=== PATIENT | female | born 1935 | race Caucasian/White ===

== ENCOUNTER 2019-01-05 08:33 | Outpatient (CLI) | payer MEDICARE ==
--- NOTE | 2019-01-05 15:07 | NM ---
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 1 hour prior to injection of radiopharmaceutical. 4.6 mCi of I-123 Ioflupane. Three-hour postinjection SPECT of brain in axial plane. FINDINGS: There is uptake in the bilateral caudate nuclei and putamen. However, the uptake in the right caudate is less intense than that of the left. IMPRESSION: No conclusive evidence of Parkinson's disease..
== END 2019-01-05 08:34 | disposition home or self-care (01) ==
LOC: NM 08:33
PROVIDERS: ATTEND Psychiatry & Neurology Neurology
DX: G21.4 Vascular parkinsonism (principal)
CPT/HCPCS: 78607; A9584

== ENCOUNTER 2019-01-27 23:06 | Inpatient (IN) | payer MEDICARE ==
[2019-01-27] MEDS ORDERED: Lorazepam 2 MG/ML VIAL ONE (23:41)
[2019-01-28] MEDS ORDERED: Sodium Chloride 0.9% 1,000 ML IV SCH (00:45)
--- NOTE | 2019-01-28 01:25 | HP ---
CHIEF COMPLAINT: Change in mental status. HOSPITAL COURSE: Patient is an 83-year-old female with a past medical history of prediabetic, hypertension, and Parkinson's, who presents to the hospital with altered mental status. Most of the history is obtained by patient's family who is at the bedside, who states that patient has been more confused for the past one week. Patient currently lives with her daughter, her , and her son-in-law at their home. Patient's family mentioned that for the past one week, she has been having decreased oral intake, however, worse since the past 3 or 4 days. Also, has not been drinking very much fluids either. She at baseline has unsteady gait, however, for the past week, has been more unsteady and has not been able to walk very much for the past 3 or 4 days. Denies any fevers or any dysuria per family that patient has been complaining of any abdominal pain, denies that. PAST MEDICAL HISTORY: She has history of hypertension, prediabetes, macular degeneration, hyperlipidemia, and depression. PAST SURGICAL HISTORY: She has had a back surgery, knee replacements, sara in her lower back, and cholecystectomy. FAMILY HISTORY: Mother had diabetes. Father had lung cancer. REVIEW OF SYSTEMS: Unable to obtain as patient is too drowsy. SOCIAL HISTORY: No history per family of smoking, alcohol use, or recreational drug use. She is a full code. ALLERGIES: SHE HAS NO KNOWN DRUG ALLERGIES. HOWEVER, SHE PREFERS NOT TO USE ASPIRIN AND IBUPROFEN. MEDICATIONS: 1. Atenolol 50 mg daily. 2. Lisinopril 40 mg daily. 3. Doxazosin 4 mg daily. 4. Prozac 40 mg daily. 5. Pravastatin 20 mg daily. 6. Metformin 500 mg daily. 7. Alprazolam 0.25 as needed. 8. Carbidopa levodopa 50/200 four times a day. 9. Pramipexole 0.25 t.i.d. 10. Venlafaxine 150 mg daily. 11. Trazodone 50 mg daily. 12. Rivastigmine 3 mg twice a day. 13. Ranitidine 150 mg twice a day. 14. Zofran every 8 hours as needed. PHYSICAL EXAMINATION: VITAL SIGNS: Temperature 97.4, respirations are 16, oxygenation is 100% on room air, blood pressure 133/91, and pulse of 58. GENERAL: She is sleeping, easily arousable, oriented to self and family members. HEENT: Her mucosa appears to be very, very dry. Her pupils equal and reactive to light. CV: S1 and S2 present. She does have a systolic murmur that radiates to all her right sternal border, left sternal border. LUNGS: Clear to auscultation. No rhonchi or wheezes noted. ABDOMEN: Obese. Bowel sounds are present x2. Mild pain upon palpation to epigastric area and right upper quadrant and right lower quadrant. SKIN: No cuts, lesions, or bruises noted. NEUROVASCULAR: No focal deficits noted. She is able to move all 4 extremities. IMAGING: Patient had a CT of abdomen and pelvis, which indicated obstructive proximal to mid left urethral calculus. 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 There was some wall thickening in the distal antrum of the stomach, hepatic flexure, and colon. LABORATORY DATA: Patient's labs indicated a white count of 12.2, hemoglobin of 13.0, hematocrit of 40.6, and platelets of 298. She had INR that was 1.1. She had a BMP; sodium of 135, potassium of 4.2, BUN of 20, creatinine 0.91, and her calcium was 12. Her urine indicated positive for nitrites. Troponin x1 was negative. Lactic acid was 1.4. ASSESSMENT AND PLAN: Patient is a very pleasant 83-year-old female, presents to the hospital with change in mental status. 1. Acute metabolic encephalopathy. This could be possibly from the urinary tract infection versus new diagnosis of cancer. We will start her on some IV hydration. Also, Urology has been consulted. We will continue to monitor. 2. Urinary tract infection. Patient has an obstructive calculi in her left ureter. We will keep her n.p.o., IV hydration. We will check her intake and output carefully. Urology has been consulted. She will possibly go for surgery in the morning. We will start her on some meropenem given this is an obstructive stone. She is currently clinically stable. Hypercalcemia. This is probably secondary to dehydration. We will continue IV hydration. 1. Dehydration. Again, we will continue IV fluids and continue to monitor this patient. 2. Significant metastatic disease noted, unknown primary. I have consulted Gastroenterology. Again, patient may benefit from either an EGD or a colonoscopy versus a liver biopsy. I am not sure exactly at this time. We will try and upload the scans for further evaluation. 3. Deep venous thrombosis prophylaxis. We will put the patient on SCDs. Job ID: [id number]
[2019-01-28 02:01] VITALS: BMI 27.8
[2019-01-28] MEDS: Dextrose 5 % And 0.9 % NaCl 1,000 ML IV SCH ×2 (02:31→10:20)
[2019-01-28] MEDS: hydrALAZINE 20 MG/ML VIAL SLOW IVP PRN ×2 (02:43→10:20)
[2019-01-28 06:39] LABS: #Eosinphils 0.1 thou/uL (0.0-0.7); #Lymphocytes 1.9 thou/uL (1.20-3.40); #Monocytes 1.3 thou/uL (0.11-0.59); #Neutrophils 7.9 thou/uL (1.40-6.50); %Basophils 0.4 % (0.0-1.0); %Lymphocytes 17.1 % (21.0-51.0); %Monocytes 11.9 % (0.0-10.0); %Neutrophils 69.7 % (42.0-75.0); Hemoglobin 11.6 g/dL (12.0-16.0); Mean Corpuscular HGB CONC 32.1 g/dL (32.0-36.0); Mean Corpuscular Hemoglobin 28.4 pg (27.0-31.0); Mean Corpuscular Volume 88.6 fL (78.0-98.0); Platelet Count 242 thou/uL (130-400); RBC Distribution Width 14.9 % (11.5-14.5); Red Blood Cell (RBC) Count 4.09 mill/uL (4.20-5.40); White Blood Cell (WBC) Count 11.3 thou/uL (4.8-10.8)
[2019-01-28 06:59] LABS: Anion Gap 12 mmol/L (10-20); BUN (Urea Nitrogen) 15 mg/dL (9.8-20.1); Calc. Creatinine Clearance 67 mL/min (70-130); Calcium 10.3 mg/dL (7.8-10.44); Carbon Dioxide 23 mmol/L (23-31); Chloride 105 mmol/L (98-107); Estimated GFR-MDRD 73; Glucose 89 mg/dL (83-110); Potassium 3.5 mmol/L (3.5-5.1); Sodium 136 mmol/L (136-145)
[2019-01-28] MEDS: Pramipexole Di-HCl 0.25 MG TAB PO SCH ×3 (08:09→21:14)
[2019-01-28] MEDS: FLUoxetine HCl 20 MG CAP PO SCH (08:09)
[2019-01-28] MEDS: Famotidine 20 MG TAB PO SCH ×2 (08:09→21:15)
[2019-01-28] MEDS ORDERED: FLU VACC TS2019-20(65YR UP)/PF 180 MCG/0.5 ML SYRINGE IM ONE (09:00)
[2019-01-28] MEDS ORDERED: Prevnar 13-Val Conj/PF 0.5 ML SYRINGE IM ONE (09:00)
[2019-01-28] MEDS ORDERED: Atenolol 50 MG TAB PO SCH (09:00)
[2019-01-28] MEDS ORDERED: ePHEDrine/0.9% NaCl/PF SYRINGE 50 mg/10 ml ONE (10:37)
[2019-01-28] MEDS ORDERED: Dexamethasone 20 MG/5 ML VIAL ONE (10:37)
[2019-01-28] MEDS ORDERED: Lidocaine 1% PF 5 ML VIAL ONE (10:37)
[2019-01-28] MEDS ORDERED: Ondansetron PF 4 MG/2 ML Vial ONE (10:37)
[2019-01-28] MEDS ORDERED: PROPOFOL 200 MG/20 ML VIAL ONE (10:37)
[2019-01-28] MEDS ORDERED: hydrALAZINE 25 MG TAB PO SCH (12:15)
--- NOTE | 2019-01-28 12:21 | CON ---
DATE OF CONSULTATION: 01/28/2019 CONSULTING: [facility]. CONSULTED: Andrade Melchor MD REASON FOR CONSULTATION: Ureteral stone with urinary tract infection. HISTORY OF PRESENT ILLNESS: Ms. Hurtado is an 83-year-old white female, who was admitted to the hospital with history of altered mental status. She became confused, lethargic, and has progressively been getting worse over the past week. The patient's family stated that she is starting to eat less over the past 3 to 4 days and has not been drinking much and has become more unsteady while walking. She has not had any fevers, urinary complaints, or dysuria per the family, but they did note that she has been having some abdominal discomforts and abdominal pain. She was taken to the emergency room in [place] at [facility], where she underwent a CT scan demonstrating multiple liver lesions and what looked like diffuse metastatic disease concerning for possible hepatocellular carcinoma with metastasis, although this has not been fully confirmed. It was also noted that she did have a left ureteral calculus measuring 15 mm with hydronephrosis and urine finding suspicious for urinary tract infection. As such, she was transferred to [facility] here, where she awaits further evaluation and treatment. I have been consulted for management of the urinary tract infection and kidney stone. Most of the history is obtained from the family as the patient is pleasantly confused and is not really answering questions appropriately other than simple yes or no questions. ALLERGIES: NONE, ALTHOUGH SHE DOES HAVE MILD INTOLERANCE TO ASPIRIN AND IBUPROFEN. PAST MEDICAL HISTORY: 1. Hypertension. 2. Prediabetes. 3. Macular degeneration. 4. Hyperlipidemia. 5. Depression. PAST SURGICAL HISTORY: 1. Back surgery. 2. Knee replacement. 3. Lower back surgery. 4. Cholecystectomy done in an open fashion. FAMILY HISTORY: Significant for diabetes and father with lung cancer. She has no family history of nephrolithiasis. SOCIAL HISTORY: The patient does not smoke or use alcohol or any illicit drugs. She is currently full code. REVIEW OF SYSTEMS: A 12-point review of systems was unable to be obtained as the patient is not really answering questions appropriately. Per the family, the review of systems is the same as above with no other additional findings. PHYSICAL EXAMINATION: VITAL SIGNS: Temperature 98, pulse 58, respirations 18, blood pressure 185/80, saturation 98% on room air. GENERAL: No apparent distress. Communicative only with one-word answers. The patient falls asleep sometimes during conversation and is not really answering questions appropriately. She appears stated age. HEENT: Normocephalic and atraumatic. Pupils are symmetric and round. Trachea, midline. Moist mucous membranes. CARDIOVASCULAR: Regular rate and rhythm. Normal S1 and S2. Symmetric pulses. CHEST: No increased work of breathing. Symmetric expansion. LUNGS: Clear anteriorly. ABDOMEN: Soft, nontender, and nondistended. Well-healed large midline incision without hernia. There does appear to be a fluid shift within the belly. GENITOURINARY: Deferred at this time. EXTREMITIES: Trace edema bilaterally. No clubbing or cyanosis. SKIN: Warm and dry. No rashes or lesions. Good turgor. MUSCULOSKELETAL: No obvious joint deformities or joint erythema noted. Full range of motion. NEUROLOGIC: Cranial nerves 2 through 12 grossly intact. No obvious focal, sensory, or motor deficits identified. LYMPHATIC: There is no obvious lymphadenopathy in the supraclavicular, cervical, axillary regions, or inguinal region. PSYCHIATRIC: Slightly somnolent. Oriented x1. The patient has what appears to be a normal mood and affect and is currently pleasant. LABORATORY EVALUATION: The full set of labs are in the [facility], which I have reviewed. Of note, the patient's white count is currently 11.3 with a creatinine of 0.76. Urinalysis from [facility] demonstrates nitrite positive urine with leukocyte esterase, white cells, and red cells. Cultures apparently are pending. CT from [facility] has been reviewed through the [facility], which demonstrates an obstructing proximal-mid left ureteral calculus measuring 15 mm with proximal left hydroureter and mild hydronephrosis. There also appears to be liver metastatic disease with peritoneal carcinomatosis and probable pulmonary metastatic disease, which is nonspecific. It is unclear as the exact etiology in origin of this cancer. ASSESSMENT AND PLAN: An 83-year-old white female with new diagnosis of diffuse metastatic disease of unknown origin with what appears to be carcinomatosis with some ascitic fluid as well as a 15 mm left ureteral calculus with hydronephrosis and evidence of urinary tract infection. She has no SIRS criteria or evidence of sepsis currently, but may progress towards that without decompression of the kidney despite antibiotic therapy. We discussed antibiotic therapy alone versus antibiotic therapy with the ureteral stent with the success rate being much higher and safer with ureteral stent placement. I explained how stent is done along with risks and benefits. Risks which include, but are not limited to bleeding, infection, inability to pass the stent, need for nephrostomy tube, and damage to the ureter. The family understands these risks and states they would like to proceed with ureteral stenting at this time. Afterwards, she would need at least 7 to 10 days of treatment with antimicrobial therapy to clear the complicated urinary tract infection. I would not recommend definitive ureteroscopy at this time until after infection is cleared and until we have a definitive plan in place regarding her metastatic disease. If the family opts for a hospice or palliative care approach, then I would just leave the stent indwelling and plan for no further interventions. If they are going to pursue a more aggressive treatment with chemotherapy or treatments, then I would plan for ureteroscopy prior to initiation with removal of the stone, after which time she can initiate whatever treatment the family desires for treatment of this metastatic disease. I have gone over the procedure with the family now. She is to be kept n.p.o., continue on antibiotic therapy, SCDs, on-call to the OR, and we will plan for ureteral stent today on the left. Job ID: [id number]
[2019-01-28] MEDS ORDERED: cefTRIAXone\\ROCEPHIN 1 GM VIAL ONE (13:42)
[2019-01-28] MEDS ORDERED: Sodium Chloride 0.9% 100 ML ONE (13:42)
[2019-01-28] MEDS ORDERED: Fentanyl 100 MCG/2 ML VIAL ONE (14:17)
--- NOTE | 2019-01-28 14:45 | CON ---
DATE OF CONSULTATION: REASON FOR CONSULTATION: Suspected abdominal malignancy. HISTORY OF PRESENT ILLNESS: Ms. Hurtado is an 83-year-old, who has had Parkinson's and vascular dementia diagnoses for many years. She gets her primary care in [place] with Dr. Schumacher, who has managed her quite well with both of these disorders as well as diabetes, hypertension. In the past couple of months, she has had very poor functional status according to her at the bedside and the daughter. She has been eating less. She has been less mobile, and in the past several days, she has become confused. This has maybe been in the past week and the patient got to where she really was not eating. She is not able to walk or get out of bed for couple of days. The family ultimately brought her to the emergency room in [place]. She had a CAT scan showing multifocal liver lesions, largest being 10 cm in size in the right lower lobe of the liver, multifocal lung lesions and possible some areas of thickening of the colon and stomach. These were concerning for metastatic carcinoma. The patient also was found to have ureteral blockage. She was transferred to this hospital for further evaluation. PAST MEDICAL HISTORY: Hypertension, diabetes, macular degeneration, hyperlipidemia, depression, Parkinson's, and vascular dementia. PAST SURGICAL HISTORY: Back surgery, knee replacement, sara in her back, cholecystectomy. FAMILY HISTORY: Mother had diabetes. Father had lung cancer. REVIEW OF SYSTEMS: Unable to be obtained as the patient is basically not responsive. SOCIAL HISTORY: No history of smoking or alcohol use or drug use. Presently, the patient is a full code. ALLERGIES: NONE KNOWN. MEDICATIONS: At home; 1. Atenolol. 2. Lisinopril. 3. Doxazosin. 4. Prozac. 5. Pravastatin. 6. Metformin. 7. Alprazolam. 8. Carbidopa and levodopa. 9. Pramipexole. 10. Venlafaxine. 11. Trazodone. 12. Rivastigmine. 13. Ranitidine. 14. Zofran . PHYSICAL EXAMINATION: VITAL SIGNS: Temperature 97.7, pulse 67, blood pressure 187/78. GENERAL: The patient does open her eyes, but does not communicate. HEENT: Conjunctivae are clear. Oropharynx with no lesions. NECK: Supple without adenopathy. LUNGS: Clear. HEART: Regular rate and rhythm. ABDOMEN: Notable for massive hepatomegaly. There is no shifting dullness or fluid wave. There is no inguinal masses or lesions. RECTAL: Deferred. EXTREMITIES: No clubbing, cyanosis, or edema. BREASTS: Revealed no overt masses. AXILLA: Revealed no overt masses or nodes. LABORATORY DATA: Here, white count is 11.3, hemoglobin 11.6, platelet count 242. BMP is normal with calcium of 10.3. Outside records notable for UA with positive nitrites, a few bacteria, 20 to 50 white blood cells, moderate leukocytes. Lipase is 17. Glucose 63 on presentation, sodium 135, potassium 4.2, bicarb 22, calcium of 12.0 on initial presentation, bilirubin 1, alkaline phosphatase 477, AST 111, ALT 10, protein 6.5, albumin 3.4. Troponin was normal. Lactic acid 1.4. White count was 12.2, hemoglobin is 13, platelet count was 298. CT scan showed a normal-sized heart, and multiple noncalcified scattered pulmonary nodules, largest measuring 7 to 8 mm with trace pleural fluid. Abdomen, multiple low-attenuation lesions in both lobes of the liver including a large confluent mass in the right lobe, which was 12 to 13 cm in size. There are some cystic lesions in the kidneys, normal appearing pancreas. Left hydroureter with a 1.5 cm calcification in the proximal mid left ureter. There was nonspecific wall thickening in the antrum of stomach. There was questionable focal wall thickening in hepatic flexure. There was mild scattered omental peritoneal nodularity consistent with peritoneal carcinomatosis. Small nonspecific lymph nodes in this area. A small amount of ascites. Uterus was surgically absent. There was questionable focal asymmetric thickening of the rectum. Chest x-ray was negative. CT scan of the head was negative except for the chronic ischemic changes. ASSESSMENT: This is an 83-year-old female, who has had progressive decline in functional status for the past several months, and over the past week, has had a precipitous decline in functional status. She may or may not have a urinary tract infection. She presented with dehydration and calcium of 12. This has responded to IV fluids, but really has not had a change in her mentation. She is going for a ureteral stent today. The main problem here is that she has diffusely metastatic malignancy. With her baseline functional status, even before the last several days, this is going to be something that is probably not treatable as I am not sure that she would be able to get palliative chemotherapy, and I recommended to the family palliative care measures, comfort measures. If they want a diagnosis to be made, liver biopsy can be performed on Wednesday by Radiology for a biopsy for pathologic diagnosis. In the meantime, I would strongly recommend DNR status. If I can be of any further assistance, please do not hesitate to contact me. Job ID: [id number]
[2019-01-28] MEDS ORDERED: Promethazine HCl 25 MG/ML VIAL IM PRN (15:05)
[2019-01-28] MEDS ORDERED: Promethazine HCl 25 MG/ML VIAL SLOW IVP PRN (15:05)
[2019-01-28] MEDS ORDERED: Ondansetron HCl/PF 4 MG/2 ML Vial IVP PRN (15:05)
--- NOTE | 2019-01-28 15:51 | OP ---
DATE OF PROCEDURE: 01/28/2019 SERVICE: Urology. PREOPERATIVE DIAGNOSIS: Left ureteral stone. POSTOPERATIVE DIAGNOSIS: Left ureteral stone. PROCEDURES PERFORMED: Cystoscopy with left ureteral stent placement, 6 x 24 double-J stent. INDICATION FOR PROCEDURE: Ms. Hurtado is an 83-year-old white female, who presented to the hospital with diffuse abdominal pain and altered mental status. She was found to have diffuse metastatic disease along with a left ureteral stone with hydronephrosis. She had evidence of urinary tract infection on UA. Due to the pressing nature of an infection with the stone, we have elected to proceed forward with ureteral stent placement. Risks and benefits were discussed and she has agreed to proceed forward. DESCRIPTION OF PROCEDURE: After identification of armband and verification of consent, the patient was brought back to the operating room, where she underwent general anesthesia with an LMA. She was then placed in dorsal lithotomy position and prepped and draped in usual sterile fashion. After appropriate time-out, a lubricated 22-Portuguese rigid cystoscope was induced per urethra into the bladder. The bladder appeared relatively normal with both ureters in orthotopic location. Attention was turned to the left ureteral orifice, which was cannulated with a 0.035 Sensor wire, which went up to the level of the stone, but could not be manipulated past the stone. Therefore, we switched out for an angled Glidewire, which we able to manipulate past the stone up into the renal pelvis. A 6 x 24 double-J stent was advanced over the Glidewire up to the level of renal pelvis and then, the wire removed leaving a good curl in the kidney and a good curl in the bladder. The bladder was then emptied and cystoscope removed. Rectal exam was performed, which did not demonstrate any lesions or masses within the rectum. The patient was then taken out of positioning, awakened, taken to PACU for recovery in stable condition. COMPLICATIONS: None. ESTIMATED BLOOD LOSS: Minimal. RETAINED TUBE AND DRAINS: A 6 x 24 double-J stent on the left. SPECIMENS: None. FINDINGS: Again is a radiopaque stone in the left ureter. DISPOSITION: The patient will be admitted back to the hospital to complete her metastatic disease workup. Based on this and her ultimate goals for either hospice versus definitive treatment, we will make plans for definitive urologic intervention. Job ID: [id number]
[2019-01-28] MEDS: hydrALAZINE 25 MG TAB PO SCH ×2 (16:17→21:15)
[2019-01-28] MEDS: Acetaminophen 325 MG TAB PO PRN (18:22)
[2019-01-28] MEDS: cefTRIAXone\\ROCEPHIN 1 GM in Sodium Chloride 0.9% 100 ML IVPB SCH (21:12)
[2019-01-28] MEDS: Simvastatin 5 MG TAB PO SCH (21:14)
[2019-01-29] MEDS: hydrALAZINE 20 MG/ML VIAL SLOW IVP PRN (00:52)
[2019-01-29] MEDS: Dextrose 5 % And 0.9 % NaCl 1,000 ML IV SCH ×2 (05:09→15:22)
[2019-01-29] MEDS: FLUoxetine HCl 20 MG CAP PO SCH (08:56)
[2019-01-29] MEDS: Famotidine 20 MG TAB PO SCH ×2 (08:56→21:46)
[2019-01-29] MEDS: Pramipexole Di-HCl 0.25 MG TAB PO SCH ×3 (08:57→21:47)
[2019-01-29] MEDS: hydrALAZINE 25 MG TAB PO SCH ×3 (08:57→21:46)
--- NOTE | 2019-01-29 13:12 | PRG ---
DATE OF SERVICE: 01/29/2019 SUBJECTIVE: Ms. Hurtado is resting in bed. She is moderately demented. She is speaking today which she was not yesterday, but really cannot answer questions. She seems pleasant. Her is at the bedside. OBJECTIVE: VITAL SIGNS: Temperature is 97, pulse 76, blood pressure 142/73. ABDOMEN: Soft and nontender. There is hepatomegaly noted. LABORATORY DATA: No labs were done today. ASSESSMENT: 1. Status post stent for nephrolithiasis yesterday. 2. Diffusely metastatic malignancy throughout the abdomen with carcinomatosis and liver masses and lung masses. The patient's and daughter did discuss what I discussed with them yesterday throughout the day and last night, and they would like to proceed with a biopsy to make a diagnosis, then decide how to proceed. They do understand that likely with her advanced dementia she will not be a candidate even for palliative therapy. They would like to proceed anyway. Palliative Care is going to come by and talk to them later today apparently. PLAN: We will schedule a CT-guided biopsy of liver mass for tomorrow as long as they continue with that plan after talking with palliative care today. Job ID: [id number]
[2019-01-29] MEDS: Acetaminophen 325 MG TAB PO PRN (13:43)
--- NOTE | 2019-01-29 16:12 | PRG ---
DATE OF SERVICE: 01/29/2019 SUBJECTIVE: The patient is seen and examined at the bedside. The patient's daughter is present in the room during my visit. The patient does not have much complaints to offer. She is still quite confused. According to the daughter, her baseline is much less than what we see during my visit. OBJECTIVE: VITAL SIGNS: Blood pressure is 142/73, pulse is 76, temperature is 97.9, respiratory rate is 20, and O2 saturation is 94% on room air. HEENT: Head is atraumatic and normocephalic. Eyes are PERRLA. Sclerae are nonicteric. Oral mucosa is moist. NECK: Supple. LUNGS: Clear. HEART: S1, S2 normal. ABDOMEN: Soft, obese, nontender with possible ascites. EXTREMITIES: No clubbing, cyanosis, or edema. NEUROLOGIC: She follows my commands. She is alert and oriented x1. She moves all 4 extremities. LABORATORY DATA: Glucose is 135 and is ranging from 100 to 170. Echocardiogram is showing LVEF estimated at 60% to 65%, grade 1/3 diastolic dysfunction, mildly dilated left atrium, mild mitral regurgitation, mild aortic regurgitation, and mild tricuspid regurgitation. IMPRESSION: 1. Urinary tract infection. 2. Left ureter stone obstructing status post stenting by Dr. Melchor. 3. Acute metabolic encephalopathy, still present, most likely related to her urinary tract infection. 4. Dehydration. 5. Metastatic disease of her abdominal cavity. The daughter agreed for biopsy of the liver to get diagnosis. PLAN: Plan is to continue her antibiotic, which is ceftriaxone. We are waiting for urine culture. We are going to restart her carbidopa/levodopa along with her Mirapex. Continue her trazodone p.r.n., simvastatin, hydralazine, Prozac, and Pepcid. Job ID: [id number]
[2019-01-29] MEDS: Carbidopa/Levodopa CR 50-200 mg Tablet PO SCH ×2 (16:33→21:47)
--- NOTE | 2019-01-29 16:44 | PRG ---
DATE OF SERVICE: 01/29/2019 SUBJECTIVE: The patient is feeling comfortable. She has no complaints. She is not complaining of any urgency or frequency symptoms. She has not had any pain. The family has not noticed any significant gross hematuria. She is otherwise doing very well. She tolerated her ureteral stent without any issues. Dr. Sosa has seen the patient and had discussed palliative care versus biopsy to establish diagnosis with discussion of options afterwards. It appears at the current time the family would like to pursue a biopsy first before making a final decision versus hospice or palliative care. OBJECTIVE: VITAL SIGNS: Temperature 97.9, pulse 79, respirations 136/74, respirations 20, and saturation 94% on room air. GENERAL: No apparent distress. Communicative. Pleasantly demented. Oriented x1. CARDIOVASCULAR: Regular rate and rhythm. ABDOMEN: Soft, nontender, and nondistended. Positive bowel sounds. : Deferred. EXTREMITIES: No clubbing, cyanosis, or edema. LABORATORY EVALUATION: The full set of labs are in the [facility] system, which I have reviewed. Of note, the patient only had a blood sugar checked today, which appeared to be only slightly elevated. No other new labs otherwise. 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 Family has elected for a biopsy tomorrow, and once pathology results are back, if it is truly diffuse metastatic hepatocellular carcinoma, the patient will probably have limited options per Dr. Sosa' recommendations and would best be served under hospice or palliative care. As such, I would not make any further plans for ureteroscopy, stone removal, or stent removal at this time unless the patient is doing extremely well, which is an unlikely, so long as she is declining and on a hospice track, I would not do anything further and just leave the stent in indefinitely, and the patient will probably in the future with the stent and stone both in place. There is no indication to remove the stent at this time as it is not causing her any problems and will probably minimize her pain, so long as it remains in place. If for some strange reason, she is doing very well past 3 to 6 months out and is expected to live significantly longer than that, then I would give consideration to a stent exchange, although I think this scenario would be very unlikely. I have given the daughter my contact information for the office so that she may call if my services are needed again in the future. Otherwise, I will sign off as there does not appear to be anything further at this time for the urologic interventions. Job ID: [id number]
[2019-01-29] MEDS ORDERED: Pramipexole Di-HCl 0.25 MG TAB PO SCH (21:00)
[2019-01-29] MEDS: Simvastatin 5 MG TAB PO SCH (21:47)
[2019-01-29] MEDS: traZODone HCl 50 MG TAB PO PRN (23:19)
[2019-01-29] MEDS: cefTRIAXone\\ROCEPHIN 1 GM in Sodium Chloride 0.9% 100 ML IVPB SCH (23:20)
[2019-01-30] MEDS: Acetaminophen 325 MG TAB PO PRN (04:11)
[2019-01-30 06:07] LABS: #Eosinphils 0.1 thou/uL (0.0-0.7); #Lymphocytes 1.3 thou/uL (1.20-3.40); #Neutrophils 7.9 thou/uL (1.40-6.50); %Basophils 0.1 % (0.0-1.0); %Eosinophils 1.2 % (0.0-10.0); %Lymphocytes 12.6 % (21.0-51.0); %Monocytes 9.8 % (0.0-10.0); %Neutrophils 76.3 % (42.0-75.0); Hemoglobin 9.3 g/dL (12.0-16.0); Mean Corpuscular HGB CONC 29.6 g/dL (32.0-36.0); Mean Corpuscular Hemoglobin 28.5 pg (27.0-31.0); Mean Corpuscular Volume 96.5 fL (78.0-98.0); Mean Platelet Volume 8.8 fL (7.4-10.4); Platelet Count 201 thou/uL (130-400); Red Blood Cell (RBC) Count 3.26 mill/uL (4.20-5.40); White Blood Cell (WBC) Count 10.3 thou/uL (4.8-10.8)
[2019-01-30 06:09] LABS: INR-International Normal Ratio 1.6; Prothrombin Time 18.6 SEC (12.0-14.7)
[2019-01-30] MEDS: Dextrose 5 % And 0.9 % NaCl 1,000 ML IV SCH ×2 (06:21→12:31)
[2019-01-30] MEDS: hydrALAZINE 25 MG TAB PO SCH ×3 (08:47→20:55)
[2019-01-30] MEDS: Famotidine 20 MG TAB PO SCH ×2 (10:48→20:54)
[2019-01-30] MEDS: Carbidopa/Levodopa CR 50-200 mg Tablet PO SCH ×4 (10:48→20:55)
[2019-01-30] MEDS: Pramipexole Di-HCl 0.25 MG TAB PO SCH ×3 (10:49→20:55)
[2019-01-30] MEDS ORDERED: Fentanyl 100 MCG/2 ML VIAL ONE (11:17)
[2019-01-30] MEDS ORDERED: Midazolam HCl 2 mg/2 ml Vial ONE (11:39)
[2019-01-30] MEDS: FLUoxetine HCl 20 MG CAP PO SCH (12:32)
--- NOTE | 2019-01-30 14:31 | CT ---
CT-guided biopsy liver mass HISTORY: Multiple liver masses. FINDINGS: After explaining the procedure and obtaining informed consent, limited CT imaging of the ab domen was performed. Multiple heterogeneous low density masses are seen throughout each liver lobe. Safest approach is to the left lobe. Sterile technique, buffered local anesthesia, CT guidance, and an anterior subxiphoid approach were u sed to carefully advance a 17-gauge trocar needle into the large hypoechoic mass within the left liver lobe. Position was confirmed with CT imaging. A total of 2 18-gauge core biopsy specimens were obtained and submitted to Dr. Zimmerman from pathology f or evaluation. Specimen adequacy was confirmed. Needle was removed. CT images show no evidence of complication. Patient tolerated the procedure well and was returned in unchanged condition. IMPRESSION: Technically successful CT-guided liver mass biopsy. Pathology is pending.
--- NOTE | 2019-01-30 14:51 | PDOC.HOSPP ---
- Subjective Encounter Date: 01/30/19 Encounter Time: 14:48 Subjective: pleasantly confused - Objective Vital Signs & Weight: Vital Signs (12 hours) Temp Pulse Resp BP BP Pulse Ox 01/30/19 12:29 97 F L 86 16 139/83 93 L 01/30/19 08:47 88 156/86 H 01/30/19 08:00 95 01/30/19 07:29 97.6 F 88 20 146/83 H 94 L 01/30/19 06:08 97.8 F 86 14 143/75 H 92 L Weight Admit Weight 167 lb Weight 167 lb 11.2 oz I&O: 01/29/19 01/30/19 01/31/19 06:59 06:59 06:59 Intake Total 1200 990 Balance 1200 990 Result Diagrams: 01/30/19 05:39 01/28/19 05:50 Additional Labs: Accuchecks 01/30/19 01/30/19 01/29/19 12:53 04:45 20:22 POC Glucose 98 90 110 01/29/19 16:35 POC Glucose 114 H Hospitalist ROS - Medication Medications: Active Medications Generic Name Dose Route Start Last Admin Trade Name Freq PRN Reason Stop Dose Admin Acetaminophen 650 mg 01/27/19 23:47 01/30/19 04:11 Tylenol PO 650 mg Q4H PRN Administration Headache/Fever/Mild Pain (1-3) Carbidopa/Levodopa 1 tab 01/29/19 17:00 01/30/19 12:32 Sinemet Cr 50/200 PO 1 tab QID FRANCOISE Administration Famotidine 20 mg 01/28/19 09:00 01/30/19 10:48 Pepcid PO Not Given BID FRANCOISE Fluoxetine HCl 40 mg 01/28/19 09:00 01/30/19 12:32 Prozac PO 40 mg DAILY FRANCOISE Administration Hydralazine HCl 5 mg 01/28/19 02:08 01/29/19 00:52 Apresoline SLOW IVP 5 mg Q6H PRN Administration Blood Pressure Hydralazine HCl 25 mg 01/28/19 15:00 01/30/19 08:47 Apresoline PO 25 mg TID FRANCOISE Administration Dextrose/Sodium Chloride 1,000 mls @ 75 mls/hr 01/27/19 23:45 01/30/19 12:31 D5 0.9% Ns IV 1,000 mls .[id number] FRANCOISE Administration Ceftriaxone Sodium 1 gm/ 100 mls @ 200 mls/hr 01/28/19 22:00 01/29/19 23:20 Sodium Chloride IVPB 100 mls Q24HR FRANCOISE Administration Pramipexole Dihydrochloride 0.25 mg 01/28/19 09:00 01/30/19 10:49 Mirapex PO Not Given TID FRANCOISE Simvastatin 10 mg 01/28/19 21:00 01/29/19 21:47 Zocor PO 10 mg HS FRANCOISE Administration Trazodone HCl 50 mg 01/28/19 00:35 01/29/19 23:19 Desyrel PO 50 mg HS PRN Administration Insomnia - Exam Neck: no JVD Heart: RRR, no murmur Respiratory: CTAB Gastrointestinal: soft, non-tender, no palpable masses Extremities: 1+ LE edema Hosp A/P (1) Encephalopathy, metabolic Code(s): G93.41 - METABOLIC ENCEPHALOPATHY Status: Acute (2) UTI (urinary tract infection) Status: Acute Qualifiers: Urinary tract infection type: acute cystitis Hematuria presence: without hematuria Qualified Code(s): N30.00 - Acute cystitis without hematuria (3) Secondary malignant neoplasm of unspecified site Code(s): C79.9 - SECONDARY MALIGNANT NEOPLASM OF UNSPECIFIED SITE; C80.1 - MALIGNANT (PRIMARY) NEOPLASM, UNSPECIFIED Status: Acute (4) Obstructive uropathy Code(s): N13.9 - OBSTRUCTIVE AND REFLUX UROPATHY, UNSPECIFIED Status: Acute (5) DM type 2 (diabetes mellitus, type 2) Status: Chronic Qualifiers: Diabetes mellitus terminal supervisor insulin use: without intermediate use Diabetes mellitus complication status: without complication Qualified Code(s): E11.9 - Type 2 diabetes mellitus without complications (6) HTN (hypertension) Code(s): I10 - ESSENTIAL (PRIMARY) HYPERTENSION Status: Acute Qualifiers: Hypertension type: essential hypertension Qualified Code(s): I10 - Essential (primary) hypertension (7) Parkinson disease Code(s): G20 - PARKINSON'S DISEASE Status: Acute - Plan liver Bx pending cont iv antibx selected home meds accu/ss
--- NOTE | 2019-01-30 16:54 | PDOC.EVN ---
Event Note - Event Note Event Note: family requests DNAR status. complied after consultation
[2019-01-30] MEDS: ALPRAZolam 0.25 MG TAB PO PRN (17:55)
[2019-01-30] MEDS: Simvastatin 5 MG TAB PO SCH (20:55)
[2019-01-30] MEDS: traZODone HCl 50 MG TAB PO PRN (22:02)
[2019-01-30] MEDS: cefTRIAXone\\ROCEPHIN 1 GM in Sodium Chloride 0.9% 100 ML IVPB SCH (22:08)
[2019-01-31] MEDS: Dextrose 5 % And 0.9 % NaCl 1,000 ML IV SCH ×2 (02:16→20:53)
[2019-01-31] MEDS: hydrALAZINE 25 MG TAB PO SCH ×3 (08:37→20:21)
[2019-01-31] MEDS: Carbidopa/Levodopa CR 50-200 mg Tablet PO SCH ×4 (08:37→20:20)
[2019-01-31] MEDS: Pramipexole Di-HCl 0.25 MG TAB PO SCH ×3 (08:38→20:20)
[2019-01-31] MEDS: Famotidine 20 MG TAB PO SCH ×2 (08:38→20:21)
[2019-01-31] MEDS: FLUoxetine HCl 20 MG CAP PO SCH (08:38)
--- NOTE | 2019-01-31 08:45 | PDOC.HOSPP ---
- Subjective Encounter Date: 01/31/19 Encounter Time: 08:43 Subjective: pleasantly confused - Objective Vital Signs & Weight: Vital Signs (12 hours) Temp Pulse Resp BP BP BP Pulse Ox 01/31/19 07:00 97.4 F L 93 18 163/85 H 93 L 01/31/19 04:00 98.1 F 77 20 117/69 94 L 01/30/19 20:55 97.6 F 88 22 H 160/82 H 94 L Weight Admit Weight 167 lb Weight 167 lb 11.2 oz I&O: 01/30/19 01/31/19 02/01/19 06:59 06:59 06:59 Intake Total 990 605 Balance 990 605 Result Diagrams: 01/30/19 05:39 01/28/19 05:50 Additional Labs: Accuchecks 01/31/19 01/30/19 01/30/19 04:54 20:55 16:45 POC Glucose 93 99 112 H 01/30/19 12:53 POC Glucose 98 Hospitalist ROS - Medication Medications: Active Medications Generic Name Dose Route Start Last Admin Trade Name Freq PRN Reason Stop Dose Admin Acetaminophen 650 mg 01/27/19 23:47 01/30/19 04:11 Tylenol PO 650 mg Q4H PRN Administration Headache/Fever/Mild Pain (1-3) Alprazolam 0.25 mg 01/28/19 00:34 01/30/19 17:55 Xanax PO 0.25 mg Q24H PRN Administration Anxiety Carbidopa/Levodopa 1 tab 01/29/19 17:00 01/30/19 20:55 Sinemet Cr 50/200 PO 1 tab QID FRANCOISE Administration Famotidine 20 mg 01/28/19 09:00 01/30/19 20:54 Pepcid PO 20 mg BID FRANCOISE Administration Fluoxetine HCl 40 mg 01/28/19 09:00 01/30/19 12:32 Prozac PO 40 mg DAILY FRANCOISE Administration Hydralazine HCl 5 mg 01/28/19 02:08 01/29/19 00:52 Apresoline SLOW IVP 5 mg Q6H PRN Administration Blood Pressure Hydralazine HCl 25 mg 01/28/19 15:00 01/30/19 20:55 Apresoline PO 25 mg TID FRANCOISE Administration Dextrose/Sodium Chloride 1,000 mls @ 75 mls/hr 01/27/19 23:45 01/31/19 02:16 D5 0.9% Ns IV 1,000 mls .[id number] FRANCOISE Administration Ceftriaxone Sodium 1 gm/ 100 mls @ 200 mls/hr 01/28/19 22:00 01/30/19 22:08 Sodium Chloride IVPB 100 mls Q24HR FRANCOISE Administration Pramipexole Dihydrochloride 0.25 mg 01/28/19 09:00 01/30/19 20:55 Mirapex PO 0.25 mg TID FRANCOISE Administration Simvastatin 10 mg 01/28/19 21:00 01/30/19 20:55 Zocor PO 10 mg HS FRANCOISE Administration Trazodone HCl 50 mg 01/28/19 00:35 01/30/19 22:02 Desyrel PO 50 mg HS PRN Administration Insomnia - Exam Neck: no JVD Heart: RRR, no murmur Respiratory: CTAB Gastrointestinal: soft, normal bowel sounds Extremities: no edema Hosp A/P (1) Encephalopathy, metabolic Code(s): G93.41 - METABOLIC ENCEPHALOPATHY Status: Acute (2) UTI (urinary tract infection) Status: Acute Qualifiers: Urinary tract infection type: acute cystitis Hematuria presence: without hematuria Qualified Code(s): N30.00 - Acute cystitis without hematuria (3) Secondary malignant neoplasm of unspecified site Code(s): C79.9 - SECONDARY MALIGNANT NEOPLASM OF UNSPECIFIED SITE; C80.1 - MALIGNANT (PRIMARY) NEOPLASM, UNSPECIFIED Status: Acute (4) Obstructive uropathy Code(s): N13.9 - OBSTRUCTIVE AND REFLUX UROPATHY, UNSPECIFIED Status: Acute (5) DM type 2 (diabetes mellitus, type 2) Status: Chronic Qualifiers: Diabetes mellitus skilled nursing insulin use: without supervisor long goods use Diabetes mellitus complication status: without complication Qualified Code(s): E11.9 - Type 2 diabetes mellitus without complications (6) HTN (hypertension) Code(s): I10 - ESSENTIAL (PRIMARY) HYPERTENSION Status: Acute Qualifiers: Hypertension type: essential hypertension Qualified Code(s): I10 - Essential (primary) hypertension (7) Parkinson disease Code(s): G20 - PARKINSON'S DISEASE Status: Acute - Plan liver Bx pending cont iv antibx selected home meds accu/ss
--- NOTE | 2019-01-31 15:49 | PDOC.PALCO ---
Palliative Care Consult - Consult Details Requesting Physician: Dr Mauricio Reason for Consult: goals of care, family support, complex decision-making Family Members Present: , daughter and son-in-law - Pertinent HPI 83 year old female with an increase in confusion a week prior to presentation to the emergency room. Also decrease in intake, and poor mobility. Admitted for metabolic encephalopathy, uncertain if related to uti or new diagnosis of cancer. - Pertinent PMH hypertension, prediabetes, macular degeneration, hyperlipidemia, depression - Social History Smoking Status: Never smoker Smoking: no tobacco exposure Alcohol Use: none Drug Use History: none Living Situation: with family/parents - Medications MAR Reviewed: Yes - Allergies Allergies/Adverse Reactions: Allergies Allergy/AdvReac Type Severity Reaction Status Date / Time codeine Allergy Verified 01/28/19 02:30 - Subjective Pleasantly confused, unable to accurately perform ROS secondary to encephalopathy. - ROS Non Response: due to mental status - Objective Vital Signs: Vital Signs - Most Recent Temp Pulse Resp BP Pulse Ox 97.4 F L 93 18 163/85 H 93 L 01/31/19 07:00 01/31/19 14:59 01/31/19 07:00 01/31/19 14:59 01/31/19 08:00 Palliative Performance Scale: 30 - Advance Directives Medical Power of Salt Maker: - Physical Exam Constitutional: NAD, confusion HEENT: EOMI, moist MMs, sclera anicteric Respiratory: clear to auscultation bilateral, unlabored breathing Cardiovascular: RRR Gastrointestinal: soft Musculoskeletal: pulses present Neurology: moves all 4 limbs Skin: cap refill <2 seconds, normal turgor, bruising Deviation from normal: confused - Problem List (1) Palliative care encounter Code(s): Z51.5 - ENCOUNTER FOR PALLIATIVE CARE Current Visit: Yes Status: Acute (2) Physical deconditioning Code(s): R53.81 - OTHER MALAISE Current Visit: Yes Status: Acute (3) Encephalopathy, metabolic Code(s): G93.41 - METABOLIC ENCEPHALOPATHY Current Visit: Yes Status: Acute (4) Secondary malignant neoplasm of unspecified site Code(s): C79.9 - SECONDARY MALIGNANT NEOPLASM OF UNSPECIFIED SITE; C80.1 - MALIGNANT (PRIMARY) NEOPLASM, UNSPECIFIED Current Visit: Yes Status: Acute - Plan/Recommendations Plan: Lengthy conversation with and family in relation to goals of care for Mrs Morgan. Family states recent increase in assistance required for [facility]'s. Patient has become a two person assist for transfers. Confusion increased such that it is also difficult to redirect patient with basic ADL's. *Family asked for information related to hospice *Famiy concerned that it will not be safe to discharge patient home secondary to increase in confusion and assistance required for ADL *Discussed that Medicare will not pay for dual services such as Hospice and [facility] *Awaiting consult from Oncology prior to decisions. CM consult placed and verbally shared information with [facility]. Palliative Care to continue to support family and patient [75] minutes spent on this encounter with >50% of the time in counseling and coordination of care. Thank you for this very appropriate consult.
[2019-01-31] MEDS: Acetaminophen 325 MG TAB PO PRN (17:47)
[2019-01-31] MEDS: Simvastatin 5 MG TAB PO SCH (20:20)
[2019-01-31] MEDS: cefTRIAXone\\ROCEPHIN 1 GM in Sodium Chloride 0.9% 100 ML IVPB SCH (20:53)
[2019-02-01] MEDS: FLUoxetine HCl 20 MG CAP PO SCH (08:15)
[2019-02-01] MEDS: Acetaminophen 325 MG TAB PO PRN (08:15)
[2019-02-01] MEDS: Pramipexole Di-HCl 0.25 MG TAB PO SCH ×3 (08:15→20:29)
[2019-02-01] MEDS: hydrALAZINE 25 MG TAB PO SCH ×3 (08:15→20:28)
[2019-02-01] MEDS: Carbidopa/Levodopa CR 50-200 mg Tablet PO SCH ×4 (12:10→20:28)
--- NOTE | 2019-02-01 14:05 | PDOC.HOSPP ---
- Subjective Encounter Date: 02/01/19 Encounter Time: 14:02 Subjective: pleasntly confused - Objective Vital Signs & Weight: Weight Admit Weight 167 lb Weight 167 lb 11.2 oz I&O: 01/31/19 02/01/19 02/02/19 06:59 06:59 06:59 Intake Total 605 Balance 605 Result Diagrams: 01/30/19 05:39 01/28/19 05:50 Additional Labs: Accuchecks 02/01/19 01/31/19 01/31/19 04:29 19:49 15:22 POC Glucose 81 79 90 Hospitalist ROS - Medication Medications: Active Medications Generic Name Dose Route Start Last Admin Trade Name Freq PRN Reason Stop Dose Admin Acetaminophen 650 mg 01/27/19 23:47 01/31/19 17:47 Tylenol PO 650 mg Q4H PRN Administration Headache/Fever/Mild Pain (1-3) Alprazolam 0.25 mg 01/28/19 00:34 01/30/19 17:55 Xanax PO 0.25 mg Q24H PRN Administration Anxiety Carbidopa/Levodopa 1 tab 01/29/19 17:00 01/31/19 20:20 Sinemet Cr 50/200 PO 1 tab QID FRANCOISE Administration Famotidine 20 mg 01/28/19 09:00 01/31/19 20:21 Pepcid PO 20 mg BID FRANCOISE Administration Fluoxetine HCl 40 mg 01/28/19 09:00 01/31/19 08:38 Prozac PO 40 mg DAILY FRANCOISE Administration Hydralazine HCl 5 mg 01/28/19 02:08 01/29/19 00:52 Apresoline SLOW IVP 5 mg Q6H PRN Administration Blood Pressure Hydralazine HCl 25 mg 01/28/19 15:00 01/31/19 20:21 Apresoline PO 25 mg TID FRANCOISE Administration Dextrose/Sodium Chloride 1,000 mls @ 75 mls/hr 01/27/19 23:45 01/31/19 20:53 D5 0.9% Ns IV Not Given .[id number] FRANCOISE Ceftriaxone Sodium 1 gm/ 100 mls @ 200 mls/hr 01/28/19 22:00 01/31/19 20:53 Sodium Chloride IVPB Not Given Q24HR FRANCOISE Pramipexole Dihydrochloride 0.25 mg 01/28/19 09:00 01/31/19 20:20 Mirapex PO 0.25 mg TID FRANCOISE Administration Simvastatin 10 mg 01/28/19 21:00 01/31/19 20:20 Zocor PO 10 mg HS FRANCOISE Administration Trazodone HCl 50 mg 01/28/19 00:35 01/30/19 22:02 Desyrel PO 50 mg HS PRN Administration Insomnia - Exam General Appearance: awake alert Neck: no JVD Heart: RRR, no murmur Respiratory: CTAB Gastrointestinal: soft, normal bowel sounds Extremities: 1+ LE edema Hosp A/P (1) Encephalopathy, metabolic Code(s): G93.41 - METABOLIC ENCEPHALOPATHY Status: Acute (2) UTI (urinary tract infection) Status: Acute Qualifiers: Urinary tract infection type: acute cystitis Hematuria presence: without hematuria Qualified Code(s): N30.00 - Acute cystitis without hematuria (3) Secondary malignant neoplasm of unspecified site Code(s): C79.9 - SECONDARY MALIGNANT NEOPLASM OF UNSPECIFIED SITE; C80.1 - MALIGNANT (PRIMARY) NEOPLASM, UNSPECIFIED Status: Acute (4) Obstructive uropathy Code(s): N13.9 - OBSTRUCTIVE AND REFLUX UROPATHY, UNSPECIFIED Status: Acute (5) DM type 2 (diabetes mellitus, type 2) Status: Chronic Qualifiers: Diabetes mellitus senior living insulin use: without meterman use Diabetes mellitus complication status: without complication Qualified Code(s): E11.9 - Type 2 diabetes mellitus without complications (6) HTN (hypertension) Code(s): I10 - ESSENTIAL (PRIMARY) HYPERTENSION Status: Acute Qualifiers: Hypertension type: essential hypertension Qualified Code(s): I10 - Essential (primary) hypertension (7) Parkinson disease Code(s): G20 - PARKINSON'S DISEASE Status: Acute - Plan liver Bx -poorly differentiated adenoca related to family cont iv antibx selected home meds accu/ss
[2019-02-01 15:56] LABS: Calcium 9.9 mg/dL (7.8-10.44); Chloride 111 mmol/L (98-107); Potassium 4.3 mmol/L (3.5-5.1); Sodium 137 mmol/L (136-145)
[2019-02-01 16:06] LABS: ALT (SGPT) 17 U/L (8-55); AST (SGOT) 136 U/L (5-34); Albumin 2.8 g/dL (3.4-4.8); Alkaline Phosphatase 578 U/L (40-110); Anion Gap 17 mmol/L (10-20); BUN (Urea Nitrogen) 16 mg/dL (9.8-20.1); Calc. Creatinine Clearance 62 mL/min (70-130); Carbon Dioxide 14 mmol/L (23-31); Estimated GFR-MDRD 67; Glucose 100 mg/dL (83-110); Protein, Total 5.8 g/dL (6.0-8.3)
[2019-02-01] MEDS: Famotidine 20 MG TAB PO SCH ×2 (16:40→20:29)
[2019-02-01] MEDS: Dextrose 5 % And 0.9 % NaCl 1,000 ML IV SCH ×2 (16:42→22:52)
[2019-02-01] MEDS: Simvastatin 5 MG TAB PO SCH (20:29)
[2019-02-01] MEDS: cefTRIAXone\\ROCEPHIN 1 GM in Sodium Chloride 0.9% 100 ML IVPB SCH (22:52)
[2019-02-02 06:27] LABS: Albumin 2.6 g/dL (3.4-4.8); Anion Gap 12 mmol/L (10-20); BUN (Urea Nitrogen) 15 mg/dL (9.8-20.1); BUN/Creatinine Ratio 19.74; Calc. Creatinine Clearance 67 mL/min (70-130); Calcium 9.9 mg/dL (7.8-10.44); Carbon Dioxide 22 mmol/L (23-31); Chloride 108 mmol/L (98-107); Estimated GFR-MDRD 73; Glucose 84 mg/dL (83-110); Phosphorus 2.1 mg/dL (2.3-4.7); Potassium 3.5 mmol/L (3.5-5.1); Sodium 138 mmol/L (136-145)
[2019-02-02] MEDS: hydrALAZINE 25 MG TAB PO SCH ×3 (08:41→20:19)
[2019-02-02] MEDS: Famotidine 20 MG TAB PO SCH ×2 (08:41→20:19)
[2019-02-02] MEDS: Pramipexole Di-HCl 0.25 MG TAB PO SCH ×3 (08:41→20:20)
[2019-02-02] MEDS: FLUoxetine HCl 20 MG CAP PO SCH (08:41)
[2019-02-02] MEDS: Carbidopa/Levodopa CR 50-200 mg Tablet PO SCH ×4 (08:42→20:19)
[2019-02-02] MEDS: Dextrose 5 % And 0.9 % NaCl 1,000 ML IV SCH (08:42)
[2019-02-02] MEDS: Acetaminophen 325 MG TAB PO PRN (08:48)
[2019-02-02] MEDS: Senokot S 8.6-50 MG TAB PO PRN (13:14)
[2019-02-02] MEDS ORDERED: Cepastat Lozenges 1 LOZ PO PRN (13:46)
[2019-02-02] MEDS ORDERED: Artificial Tears 18 DROP/0.9 ML EA EYE PRN (13:46)
[2019-02-02] MEDS ORDERED: Sodium Chloride 0.65% Nasal 44 ML BOT EA NARE PRN (13:46)
[2019-02-02] MEDS ORDERED: Diabetic Tussin 200 MG/10 ML UDCUP PO PRN (13:46)
[2019-02-02] MEDS ORDERED: Ondansetron PF 4 MG/2 ML Vial IVP PRN (13:46)
[2019-02-02] MEDS ORDERED: Loratadine 10 MG TAB PO PRN (13:46)
[2019-02-02] MEDS ORDERED: Calcium Carbonate 500 MG ChewTAB PO PRN (13:46)
--- NOTE | 2019-02-02 13:48 | PDOC.HOSPP ---
- Subjective Encounter Date: 02/02/19 Encounter Time: 09:00 Subjective: Patient seen and examined. No new complaints. No overnight events - Objective Vital Signs & Weight: Vital Signs (12 hours) Temp Pulse Resp BP BP Pulse Ox 02/02/19 08:41 92 161/85 H 02/02/19 08:00 98.4 F 92 16 161/85 H 94 L Weight Admit Weight 167 lb Weight 167 lb 11.2 oz Result Diagrams: 01/30/19 05:39 02/02/19 05:38 Additional Labs: Accuchecks 02/02/19 02/02/19 02/01/19 11:29 04:32 19:32 POC Glucose 108 78 81 02/01/19 16:25 POC Glucose 115 H Hospitalist ROS - Review of Systems Constitutional: denies: fever, chills, sweats, weakness, malaise, other ENT: denies: ear pain, ear discharge, nose pain, nose discharge, nose congestion , mouth pain, mouth swelling, throat pain, throat swelling, other Respiratory: denies: cough, dry, shortness of breath, hemoptysis, SOB with excertion, pleuritic pain, sputum, wheezing, other Cardiovascular: denies: chest pain, palpitations, orthopnea, paroxysmal noc. dyspnea, edema, light headedness, other Gastrointestinal: denies: nausea, vomiting, abdominal pain, diarrhea, constipation, melena, hematochezia, other Genitourinary: denies: dysuria, frequency, incontinence, hematuria, retention, other Musculoskeletal: reports: back pain. denies: neck pain, shoulder pain, arm pain , hand pain, leg pain, foot pain, other - Medication Medications: Active Medications Generic Name Dose Route Start Last Admin Trade Name Freq PRN Reason Stop Dose Admin Acetaminophen 650 mg 01/27/19 23:47 02/02/19 08:48 Tylenol PO 650 mg Q4H PRN Administration Headache/Fever/Mild Pain (1-3) Alprazolam 0.25 mg 01/28/19 00:34 01/30/19 17:55 Xanax PO 0.25 mg Q24H PRN Administration Anxiety Carbidopa/Levodopa 1 tab 01/29/19 17:00 02/02/19 13:14 Sinemet Cr 50/200 PO 1 tab QID FRANCOISE Administration Famotidine 20 mg 01/28/19 09:00 02/02/19 08:41 Pepcid PO 20 mg BID FRANCOISE Administration Fluoxetine HCl 40 mg 01/28/19 09:00 02/02/19 08:41 Prozac PO 40 mg DAILY FRANCOISE Administration Hydralazine HCl 5 mg 01/28/19 02:08 01/29/19 00:52 Apresoline SLOW IVP 5 mg Q6H PRN Administration Blood Pressure Hydralazine HCl 25 mg 01/28/19 15:00 02/02/19 08:41 Apresoline PO 25 mg TID FRANCOISE Administration Dextrose/Sodium Chloride 1,000 mls @ 75 mls/hr 01/27/19 23:45 02/02/19 08:42 D5 0.9% Ns IV Not Given .[id number] FRANCOISE Ceftriaxone Sodium 1 gm/ 100 mls @ 200 mls/hr 01/28/19 22:00 02/01/19 22:52 Sodium Chloride IVPB Not Given Q24HR [facility] Pramipexole Dihydrochloride 0.25 mg 01/28/19 09:00 02/02/19 08:41 Mirapex PO 0.25 mg TID FRANCOISE Administration Senna/Docusate Sodium 2 tab 01/27/19 23:47 02/02/19 13:14 Senokot S PO 2 tab BIDPRN PRN Administration Constipation Simvastatin 10 mg 01/28/19 21:00 02/01/19 20:29 Zocor PO 10 mg HS FRANCOISE Administration Trazodone HCl 50 mg 01/28/19 00:35 01/30/19 22:02 Desyrel PO 50 mg HS PRN Administration Insomnia - Exam General Appearance: NAD, awake alert Eye: PERRL, anicteric sclera ENT: normocephalic atraumatic, no oropharyngeal lesions Neck: supple, symmetric, no JVD Heart: RRR, no murmur, no gallops Respiratory: CTAB, no wheezes, no rales Gastrointestinal: soft, non-tender, non-distended, normal bowel sounds Extremities: no cyanosis, no clubbing Skin: normal turgor, no lesions Neurological: no focal deficits Musculoskeletal: normal tone, normal strength Psychiatric: normal affect, normal behavior Hosp A/P (1) Encephalopathy, metabolic Code(s): G93.41 - METABOLIC ENCEPHALOPATHY Status: Acute (2) HTN (hypertension) Code(s): I10 - ESSENTIAL (PRIMARY) HYPERTENSION Status: Acute Qualifiers: Hypertension type: essential hypertension Qualified Code(s): I10 - Essential (primary) hypertension (3) Obstructive uropathy Code(s): N13.9 - OBSTRUCTIVE AND REFLUX UROPATHY, UNSPECIFIED Status: Acute (4) Parkinson disease Code(s): G20 - PARKINSON'S DISEASE Status: Acute (5) Physical deconditioning Code(s): R53.81 - OTHER MALAISE Status: Acute (6) Secondary malignant neoplasm of unspecified site Code(s): C79.9 - SECONDARY MALIGNANT NEOPLASM OF UNSPECIFIED SITE; C80.1 - MALIGNANT (PRIMARY) NEOPLASM, UNSPECIFIED Status: Acute (7) UTI (urinary tract infection) Status: Acute Qualifiers: Urinary tract infection type: acute cystitis Hematuria presence: without hematuria Qualified Code(s): N30.00 - Acute cystitis without hematuria (8) DM type 2 (diabetes mellitus, type 2) Status: Chronic Qualifiers: Diabetes mellitus tank terminal gauger insulin use: without alf use Diabetes mellitus complication status: without complication Qualified Code(s): E11.9 - Type 2 diabetes mellitus without complications - Plan old records reviewed/req, continue antibiotics 02/02/19 oncology has been consulted and opinion pending discharge planning medication reviewed supportive care prognosis guarded continue hien
--- NOTE | 2019-02-02 14:41 | CON ---
DATE OF CONSULTATION: REASON FOR CONSULTATION: Metastatic adenocarcinoma. HISTORY OF PRESENT ILLNESS: Ms. Hurtado is a pleasant 83-year-old female with history of dementia, Parkinson disease, who over the past week or so has had worsening altered mental status, poor appetite, and weakness. She was brought to the emergency room in [place]. A CT scan performed of her abdomen and pelvis showed obstructing proximal left ureteral calculus. There were liver lesions, the largest being 10 cm. She had peritoneal carcinomatosis. There were nodules in the lung consistent with metastatic disease. She had wall thickening in the distal antrum of the stomach, hepatic flexure of the colon and the rectum consistent with likely a GI primary. She also had a urinary tract infection and was started on antibiotics. She was transferred to this facility for further treatment. She had a cystoscopy with a left ureteral stent placement. GI saw the patient as well as Palliative Care. The patient did undergo a liver biopsy. 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 Differential diagnosis included upper GI and pancreatobiliary cancer. We were asked to see the patient regarding treatment options. The patient was seen at bedside. She is oriented to person and the hospital. She denies any complaints other than mild headache. PAST MEDICAL HISTORY: 1. Hypertension. 2. Diabetes. 3. Macular degeneration. 4. Hyperlipidemia. 5. Parkinson's. 6. Depression. PAST SURGICAL HISTORY: 1. Back surgery. 2. Knee replacements. 3. There is a sara in her low back. 4. Cholecystectomy. FAMILY HISTORY: Father had lung cancer. SOCIAL HISTORY: She is , has 4 children. Lives with her . No alcohol, tobacco, or illicit drug use. ALLERGIES: NO KNOWN DRUG ALLERGIES. HOME MEDICATIONS: 1. Xanax. 2. Atenolol. 3. Carbidopa. 4. B12. 5. Cardura. 6. Prozac. 7. Lisinopril. 8. Glucophage. 9. MVI. 10. Mirapex. 11. Pravastatin. 12. Ranitidine. 13. Rivastigmine. 14. Trazodone. 15. Venlafaxine. REVIEW OF SYSTEMS: Unable to obtain secondary to mental status, although she denies any complaints. PHYSICAL EXAMINATION: VITAL SIGNS: Temperature is 98.4, pulse is 92, respiratory rate is 16, blood pressure is 161/85, and she is 94% on room air. GENERAL: This is a well-developed, well-nourished female, in no acute distress. HEENT: Normocephalic, atraumatic. Pupils are equal and reactive to light. NECK: Supple. CARDIOVASCULAR: Regular rate and rhythm. LUNGS: Clear. ABDOMEN: Soft. She does have hepatomegaly. EXTREMITIES: No clubbing or cyanosis. SKIN: No rash. HEMATOLOGICAL: No petechiae or purpura. PERTINENT LABS AND X-RAYS: Current WBC is 10.3, hemoglobin 9.3, hematocrit 31.5, platelet count is 201,000, she has 76% neutrophils, 12% lymphocytes. PT is 18.6, INR is 1.6. Sodium is 138, potassium 3.5, chloride 108, CO2 is 22, BUN is 15, creatinine is 0.76, calcium is 9.9, phosphorus is 2.1, bilirubin is 1.0, AST is 136, ALT is 17, alkaline phosphatase is 578. Serum total protein is 5.8, albumin 2.6, and globulin 3. Radiology per HPI. ASSESSMENT: Metastatic adenocarcinoma with liver lesions, peritoneal carcinomatosis, and thickening of multiple layers in the gastrointestinal tract. DISCUSSION: I met with and children to discuss treatment options. We discussed that her primary is likely GI. She would, however, need further workup including endoscopy. We discussed that all chemotherapy is palliative as she does have stage IV disease. We briefly discussed the possible side effects of chemotherapy. I would agree that the patient is best served given her dementia and poor performance status with comfort care only. The patient is a DNR. Family would like the patient to go to a swing bed, then a possible long-term with hospice. marina dry dock manager will be involved. Case has been discussed with Dr. Millan. Thank you for the consult. Job ID: [id number]
[2019-02-02] MEDS: Rivastigmine 1.5 MG CAP PO SCH (17:42)
[2019-02-02] MEDS: Doxazosin 2 MG TAB PO SCH (20:19)
[2019-02-02] MEDS: Lisinopril 20 MG TAB PO SCH (20:19)
[2019-02-02] MEDS: Simvastatin 5 MG TAB PO SCH (20:20)
[2019-02-02] MEDS: Multivit, Therapeutic 1 TAB PO SCH (20:20)
[2019-02-02] MEDS: Venlafaxine HCl XR 75 MG CAP PO SCH (20:40)
[2019-02-02] MEDS: cefTRIAXone\\ROCEPHIN 1 GM in Sodium Chloride 0.9% 100 ML IVPB SCH (22:37)
[2019-02-03] MEDS: Multivit, Therapeutic 1 TAB PO SCH ×2 (08:36→20:13)
[2019-02-03] MEDS: Famotidine 20 MG TAB PO SCH ×2 (08:37→20:12)
[2019-02-03] MEDS: FLUoxetine HCl 20 MG CAP PO SCH ×2 (08:37→08:40)
[2019-02-03] MEDS: Cyanocobalamin (Vitamin B-12) 1,000 MCG TAB PO SCH (08:37)
[2019-02-03] MEDS: Carbidopa/Levodopa CR 50-200 mg Tablet PO SCH ×4 (08:37→20:12)
[2019-02-03] MEDS: hydrALAZINE 25 MG TAB PO SCH ×3 (08:37→20:13)
[2019-02-03] MEDS: Pramipexole Di-HCl 0.25 MG TAB PO SCH ×3 (08:39→20:17)
[2019-02-03] MEDS: Rivastigmine 1.5 MG CAP PO SCH ×2 (08:43→15:52)
[2019-02-03] MEDS: Atenolol 50 MG TAB PO SCH (08:47)
--- NOTE | 2019-02-03 12:35 | PDOC.HOSPP ---
- Subjective Encounter Date: 02/03/19 Encounter Time: 10:30 Subjective: Patient seen and examined. No new complaints. No overnight events - Objective Vital Signs & Weight: Vital Signs (12 hours) Temp Pulse Resp BP BP BP Pulse Ox 02/03/19 10:20 98.1 F 78 18 99/60 95 02/03/19 08:47 98 110/73 02/03/19 08:37 98 110/73 02/03/19 08:00 95 02/03/19 07:54 98.3 F 98 16 110/73 95 02/03/19 03:51 98.7 F 99 18 122/76 93 L Weight Admit Weight 167 lb Weight 167 lb 11.2 oz I&O: 02/02/19 02/03/19 02/04/19 06:59 06:59 06:59 Intake Total 250 Balance 250 Result Diagrams: 01/30/19 05:39 02/02/19 05:38 Additional Labs: Accuchecks 02/03/19 02/02/19 02/02/19 04:08 19:26 16:19 POC Glucose 113 H 102 104 Hospitalist ROS - Review of Systems ENT: denies: ear pain, ear discharge, nose pain, nose discharge, nose congestion , mouth pain, mouth swelling, throat pain, throat swelling, other Respiratory: denies: cough, dry, shortness of breath, hemoptysis, SOB with excertion, pleuritic pain, sputum, wheezing, other Cardiovascular: denies: chest pain, palpitations, orthopnea, paroxysmal noc. dyspnea, edema, light headedness, other Gastrointestinal: denies: nausea, vomiting, abdominal pain, diarrhea, constipation, melena, hematochezia, other Genitourinary: denies: dysuria, frequency, incontinence, hematuria, retention, other Musculoskeletal: denies: neck pain, shoulder pain, arm pain, back pain, hand pain, leg pain, foot pain, other - Medication Medications: Active Medications Generic Name Dose Route Start Last Admin Trade Name Freq PRN Reason Stop Dose Admin Acetaminophen 650 mg 01/27/19 23:47 02/02/19 08:48 Tylenol PO 650 mg Q4H PRN Administration Headache/Fever/Mild Pain (1-3) Alprazolam 0.25 mg 01/28/19 00:34 01/30/19 17:55 Xanax PO 0.25 mg Q24H PRN Administration Anxiety Atenolol 50 mg 02/03/19 09:00 02/03/19 08:47 Tenormin PO 50 mg DAILY FRANCOISE Administration Carbidopa/Levodopa 1 tab 01/29/19 17:00 02/03/19 08:37 Sinemet Cr 50/200 PO 1 tab QID FRANCOISE Administration Cholecalciferol 2,000 units 02/03/19 09:00 02/03/19 08:37 Vitamin D3 PO 2,000 units DAILY FRANCOISE Administration Cyanocobalamin 1,000 mcg 02/03/19 09:00 02/03/19 08:37 Vitamin B-12 PO 1,000 mcg DAILY FRANCOISE Administration Doxazosin Mesylate 4 mg 02/02/19 21:00 02/02/19 20:19 Cardura PO 4 mg QPM FRANCOISE Administration Famotidine 20 mg 01/28/19 09:00 02/03/19 08:37 Pepcid PO 20 mg BID FRANCOISE Administration Fluoxetine HCl 40 mg 02/03/19 09:00 02/03/19 08:40 Prozac PO Not Given DAILY FRANCOISE Hydralazine HCl 5 mg 01/28/19 02:08 01/29/19 00:52 Apresoline SLOW IVP 5 mg Q6H PRN Administration Blood Pressure Hydralazine HCl 25 mg 01/28/19 15:00 02/03/19 08:37 Apresoline PO 25 mg TID FRANCOISE Administration Lisinopril 40 mg 02/02/19 21:00 02/02/19 20:19 Zestril PO 40 mg QPM FRANCOISE Administration Multivitamins 1 tab 02/02/19 21:00 02/03/19 08:36 Theragran PO 1 tab BID FRANCOISE Administration Pramipexole Dihydrochloride 0.25 mg 01/28/19 09:00 02/03/19 08:39 Mirapex PO 0.25 mg TID FRANCOISE Administration Rivastigmine 3 mg 02/02/19 17:00 02/03/19 08:43 Exelon PO Not Given BID-WM FRANCOISE Senna/Docusate Sodium 2 tab 01/27/19 23:47 02/02/19 13:14 Senokot S PO 2 tab BIDPRN PRN Administration Constipation Simvastatin 10 mg 02/02/19 21:00 02/02/19 20:20 Zocor PO 10 mg HS FRANCOISE Administration Trazodone HCl 50 mg 01/28/19 00:35 01/30/19 22:02 Desyrel PO 50 mg HS PRN Administration Insomnia Venlafaxine HCl 150 mg 02/02/19 21:00 02/02/19 20:40 Effexor Xr PO 150 mg QPM FRANCOISE Administration - Exam General Appearance: NAD, awake alert Eye: PERRL, anicteric sclera ENT: normocephalic atraumatic, no oropharyngeal lesions Neck: supple, symmetric, no JVD, no thyromegaly Heart: RRR, no murmur, no gallops, no rubs Respiratory: CTAB, no wheezes, no rales, no ronchi Gastrointestinal: soft, non-tender, non-distended, normal bowel sounds Extremities: no cyanosis, no clubbing Skin: normal turgor, no lesions Neurological: no focal deficits Musculoskeletal: normal tone, normal strength Psychiatric: normal affect, normal behavior Hosp A/P (1) Encephalopathy, metabolic Code(s): G93.41 - METABOLIC ENCEPHALOPATHY Status: Acute (2) HTN (hypertension) Code(s): I10 - ESSENTIAL (PRIMARY) HYPERTENSION Status: Acute Qualifiers: Hypertension type: essential hypertension Qualified Code(s): I10 - Essential (primary) hypertension (3) Obstructive uropathy Code(s): N13.9 - OBSTRUCTIVE AND REFLUX UROPATHY, UNSPECIFIED Status: Acute (4) Parkinson disease Code(s): G20 - PARKINSON'S DISEASE Status: Acute (5) Physical deconditioning Code(s): R53.81 - OTHER MALAISE Status: Acute (6) Secondary malignant neoplasm of unspecified site Code(s): C79.9 - SECONDARY MALIGNANT NEOPLASM OF UNSPECIFIED SITE; C80.1 - MALIGNANT (PRIMARY) NEOPLASM, UNSPECIFIED Status: Acute (7) UTI (urinary tract infection) Status: Acute Qualifiers: Urinary tract infection type: acute cystitis Hematuria presence: without hematuria Qualified Code(s): N30.00 - Acute cystitis without hematuria (8) DM type 2 (diabetes mellitus, type 2) Status: Chronic Qualifiers: Diabetes mellitus watcher automat long goods insulin use: without watcher automat [employer] use Diabetes mellitus complication status: without complication Qualified Code(s): E11.9 - Type 2 diabetes mellitus without complications - Plan old records reviewed/req, plan discussed w/ family, continue antibiotics, PT/OT , social media sr strategy manager 02/02/19 oncology has been consulted and opinion pending discharge planning medication reviewed supportive care prognosis guarded continue rocephin 02/03/19 DC rocephin change to ceftin await placement discussed with family medication reviewed and continue to provide supportive care
[2019-02-03] MEDS: Cefuroxime Axetil 250 MG TAB PO SCH (20:12)
[2019-02-03] MEDS: Doxazosin 2 MG TAB PO SCH (20:12)
[2019-02-03] MEDS: Simvastatin 5 MG TAB PO SCH (20:17)
[2019-02-03] MEDS: Venlafaxine HCl XR 75 MG CAP PO SCH (20:18)
[2019-02-03] MEDS: Lisinopril 20 MG TAB PO SCH (20:37)
[2019-02-04] MEDS: Cefuroxime Axetil 250 MG TAB PO SCH ×2 (09:05→21:14)
[2019-02-04] MEDS: Pramipexole Di-HCl 0.25 MG TAB PO SCH ×3 (09:05→21:14)
[2019-02-04] MEDS: Rivastigmine 1.5 MG CAP PO SCH ×2 (09:05→18:26)
[2019-02-04] MEDS: Multivit, Therapeutic 1 TAB PO SCH ×2 (09:06→21:14)
[2019-02-04] MEDS: FLUoxetine HCl 20 MG CAP PO SCH (09:06)
[2019-02-04] MEDS: Cyanocobalamin (Vitamin B-12) 1,000 MCG TAB PO SCH (09:06)
[2019-02-04] MEDS: Famotidine 20 MG TAB PO SCH ×2 (09:06→21:14)
[2019-02-04] MEDS: Carbidopa/Levodopa CR 50-200 mg Tablet PO SCH ×4 (09:06→21:14)
[2019-02-04] MEDS: hydrALAZINE 25 MG TAB PO SCH ×3 (09:07→21:17)
[2019-02-04] MEDS: Acetaminophen 325 MG TAB PO PRN ×2 (09:08→18:25)
[2019-02-04] MEDS: Atenolol 50 MG TAB PO SCH ×2 (09:08→13:23)
--- NOTE | 2019-02-04 10:30 | PDOC.HOSPP ---
- Subjective Encounter Date: 02/04/19 Encounter Time: 09:30 Subjective: Patient seen and examined. No new complaints. No overnight events - Objective Vital Signs & Weight: Vital Signs (12 hours) Temp Pulse Resp BP Pulse Ox 02/04/19 08:24 97.7 F 68 20 98/66 93 L Weight Admit Weight 167 lb Weight 167 lb 11.2 oz I&O: 02/03/19 02/04/19 02/05/19 06:59 06:59 06:59 Intake Total 250 Balance 250 Result Diagrams: 01/30/19 05:39 02/02/19 05:38 Hospitalist ROS - Review of Systems Eyes: denies: pain, vision change, conjunctivae inflammation, eyelid inflammation, redness, other ENT: denies: ear pain, ear discharge, nose pain, nose discharge, nose congestion , mouth pain, mouth swelling, throat pain, throat swelling, other Respiratory: denies: cough, dry, shortness of breath, hemoptysis, SOB with excertion, pleuritic pain, sputum, wheezing, other Cardiovascular: denies: chest pain, palpitations, orthopnea, paroxysmal noc. dyspnea, edema, light headedness, other Gastrointestinal: reports: constipation. denies: nausea, vomiting, abdominal pain, diarrhea, melena, hematochezia, other Genitourinary: denies: dysuria, frequency, incontinence, hematuria, retention, other Musculoskeletal: denies: neck pain, shoulder pain, arm pain, back pain, hand pain, leg pain, foot pain, other - Medication Medications: Active Medications Generic Name Dose Route Start Last Admin Trade Name Freq PRN Reason Stop Dose Admin Acetaminophen 650 mg 01/27/19 23:47 02/04/19 09:08 Tylenol PO 650 mg Q4H PRN Administration Headache/Fever/Mild Pain (1-3) Alprazolam 0.25 mg 01/28/19 00:34 01/30/19 17:55 Xanax PO 0.25 mg Q24H PRN Administration Anxiety Atenolol 50 mg 02/03/19 09:00 02/04/19 09:08 Tenormin PO Not Given DAILY FRANCOISE Carbidopa/Levodopa 1 tab 01/29/19 17:00 02/04/19 09:06 Sinemet Cr 50/200 PO 1 tab QID FRANCOISE Administration Cefuroxime Axetil 250 mg 02/03/19 21:00 02/04/19 09:05 Ceftin PO 250 mg Q12HR FRANCOISE Administration Cholecalciferol 2,000 units 02/03/19 09:00 02/04/19 09:06 Vitamin D3 PO 2,000 units DAILY FRANCOISE Administration Cyanocobalamin 1,000 mcg 02/03/19 09:00 02/04/19 09:06 Vitamin B-12 PO 1,000 mcg DAILY FRANCOISE Administration Doxazosin Mesylate 4 mg 02/02/19 21:00 02/03/19 20:12 Cardura PO 4 mg QPM FRANCOISE Administration Famotidine 20 mg 01/28/19 09:00 02/04/19 09:06 Pepcid PO 20 mg BID FRANCOISE Administration Fluoxetine HCl 40 mg 02/03/19 09:00 02/04/19 09:06 Prozac PO 40 mg DAILY FRANCOISE Administration Hydralazine HCl 5 mg 01/28/19 02:08 01/29/19 00:52 Apresoline SLOW IVP 5 mg Q6H PRN Administration Blood Pressure Hydralazine HCl 25 mg 01/28/19 15:00 02/04/19 09:07 Apresoline PO Not Given TID FRANCOISE Lisinopril 40 mg 02/02/19 21:00 02/03/19 20:37 Zestril PO 40 mg QPM FRANCOISE Administration Multivitamins 1 tab 02/02/19 21:00 02/04/19 09:06 Theragran PO 1 tab BID FRANCOISE Administration Pramipexole Dihydrochloride 0.25 mg 01/28/19 09:00 02/04/19 09:05 Mirapex PO 0.25 mg TID FRANCOISE Administration Rivastigmine 3 mg 02/02/19 17:00 02/04/19 09:05 Exelon PO 3 mg BID-WM FRANCOISE Administration Senna/Docusate Sodium 2 tab 01/27/19 23:47 02/02/19 13:14 Senokot S PO 2 tab BIDPRN PRN Administration Constipation Simvastatin 10 mg 02/02/19 21:00 02/03/19 20:17 Zocor PO 10 mg HS FRANCOISE Administration Trazodone HCl 50 mg 01/28/19 00:35 01/30/19 22:02 Desyrel PO 50 mg HS PRN Administration Insomnia Venlafaxine HCl 150 mg 02/02/19 21:00 02/03/19 20:18 Effexor Xr PO 150 mg QPM FRANCOISE Administration - Exam General Appearance: NAD, awake alert Eye: PERRL, anicteric sclera ENT: normocephalic atraumatic, no oropharyngeal lesions Neck: supple, symmetric, no JVD Heart: RRR, no murmur, no gallops, no rubs Respiratory: CTAB, no wheezes, no rales Gastrointestinal: soft, non-tender, non-distended, normal bowel sounds Extremities: no cyanosis, no clubbing Skin: normal turgor, no lesions Neurological: no focal deficits Musculoskeletal: normal tone, normal strength Psychiatric: normal affect, normal behavior Hosp A/P (1) Encephalopathy, metabolic Code(s): G93.41 - METABOLIC ENCEPHALOPATHY Status: Acute (2) HTN (hypertension) Code(s): I10 - ESSENTIAL (PRIMARY) HYPERTENSION Status: Acute Qualifiers: Hypertension type: essential hypertension Qualified Code(s): I10 - Essential (primary) hypertension (3) Obstructive uropathy Code(s): N13.9 - OBSTRUCTIVE AND REFLUX UROPATHY, UNSPECIFIED Status: Acute (4) Parkinson disease Code(s): G20 - PARKINSON'S DISEASE Status: Acute (5) Physical deconditioning Code(s): R53.81 - OTHER MALAISE Status: Acute (6) Secondary malignant neoplasm of unspecified site Code(s): C79.9 - SECONDARY MALIGNANT NEOPLASM OF UNSPECIFIED SITE; C80.1 - MALIGNANT (PRIMARY) NEOPLASM, UNSPECIFIED Status: Acute (7) UTI (urinary tract infection) Status: Acute Qualifiers: Urinary tract infection type: acute cystitis Hematuria presence: without hematuria Qualified Code(s): N30.00 - Acute cystitis without hematuria (8) DM type 2 (diabetes mellitus, type 2) Status: Chronic Qualifiers: Diabetes mellitus prison insulin use: without prison use Diabetes mellitus complication status: without complication Qualified Code(s): E11.9 - Type 2 diabetes mellitus without complications - Plan old records reviewed/req, plan discussed w/ family, PT/OT, social media marketing manager 02/02/19 oncology has been consulted and opinion pending discharge planning medication reviewed supportive care prognosis guarded continue rocephin 02/03/19 DC rocephin change to ceftin await placement discussed with family medication reviewed and continue to provide supportive care 02/04/19 continue ceftin medication reviewed and continue to provide supportive care await placement discussed with daughter stool softener for constipation
[2019-02-04] MEDS: Senokot S 8.6-50 MG TAB PO PRN (13:22)
[2019-02-04] MEDS: Simvastatin 5 MG TAB PO SCH (21:14)
[2019-02-04] MEDS: Lisinopril 20 MG TAB PO SCH (21:16)
[2019-02-04] MEDS: Venlafaxine HCl XR 75 MG CAP PO SCH (21:17)
[2019-02-04] MEDS: Doxazosin 2 MG TAB PO SCH (21:17)
[2019-02-05 05:58] LABS: #Eosinphils 0.2 thou/uL (0.0-0.7); #Lymphocytes 1.8 thou/uL (1.20-3.40); #Monocytes 1.4 thou/uL (0.11-0.59); #Neutrophils 7.2 thou/uL (1.40-6.50); %Basophils 0.2 % (0.0-1.0); %Eosinophils 2.3 % (0.0-10.0); %Lymphocytes 16.6 % (21.0-51.0); %Monocytes 13.6 % (0.0-10.0); %Neutrophils 67.3 % (42.0-75.0); Hemoglobin 10.1 g/dL (12.0-16.0); Mean Corpuscular HGB CONC 31.7 g/dL (32.0-36.0); Mean Corpuscular Hemoglobin 28.5 pg (27.0-31.0); Mean Platelet Volume 9.1 fL (7.4-10.4); Platelet Count 206 thou/uL (130-400); RBC Distribution Width 16.3 % (11.5-14.5); Red Blood Cell (RBC) Count 3.55 mill/uL (4.20-5.40); White Blood Cell (WBC) Count 10.6 thou/uL (4.8-10.8)
[2019-02-05 06:12] LABS: ALT (SGPT) Less than 7 U/L (8-55); AST (SGOT) 102 U/L (5-34); Albumin 2.3 g/dL (3.4-4.8); Alkaline Phosphatase 423 U/L (40-110); Anion Gap 8 mmol/L (10-20); BUN (Urea Nitrogen) 24 mg/dL (9.8-20.1); Bilirubin, Total 0.6 mg/dL (0.2-1.2); Calc. Creatinine Clearance 55 mL/min (70-130); Calcium 9.8 mg/dL (7.8-10.44); Carbon Dioxide 24 mmol/L (23-31); Chloride 105 mmol/L (98-107); Estimated GFR-MDRD 58; Globulin 2.4 g/dL (2.4-3.5); Glucose 89 mg/dL (83-110); Potassium 3.9 mmol/L (3.5-5.1); Protein, Total 4.7 g/dL (6.0-8.3); Sodium 133 mmol/L (136-145)
[2019-02-05] MEDS: Cefuroxime Axetil 250 MG TAB PO SCH ×2 (08:40→20:56)
[2019-02-05] MEDS: Rivastigmine 1.5 MG CAP PO SCH (08:40)
[2019-02-05] MEDS: Cyanocobalamin (Vitamin B-12) 1,000 MCG TAB PO SCH (08:40)
[2019-02-05] MEDS: Pramipexole Di-HCl 0.25 MG TAB PO SCH ×3 (08:40→20:55)
[2019-02-05] MEDS: Famotidine 20 MG TAB PO SCH (08:40)
[2019-02-05] MEDS: Senokot S 8.6-50 MG TAB PO PRN (08:40)
[2019-02-05] MEDS: FLUoxetine HCl 20 MG CAP PO SCH (08:41)
[2019-02-05] MEDS: Carbidopa/Levodopa CR 50-200 mg Tablet PO SCH ×4 (08:41→20:55)
[2019-02-05] MEDS: Multivit, Therapeutic 1 TAB PO SCH (08:41)
[2019-02-05] MEDS: Atenolol 50 MG TAB PO SCH (09:20)
[2019-02-05] MEDS: hydrALAZINE 25 MG TAB PO SCH (09:21)
--- NOTE | 2019-02-05 12:26 | PDOC.HOSPP ---
- Subjective Encounter Date: 02/05/19 Encounter Time: 10:00 Subjective: Patient seen and examined. No new complaints. No overnight events pt's son bedside and he reports that pt gets intermittent confusion - Objective Vital Signs & Weight: Vital Signs (12 hours) Temp Pulse Resp BP BP Pulse Ox 02/05/19 08:40 95 02/05/19 07:28 97.5 F L 56 L 20 98/64 95 02/05/19 03:59 97.6 F 61 16 102/65 94 L Weight Admit Weight 167 lb Weight 167 lb 11.2 oz I&O: 02/04/19 02/05/19 02/06/19 06:59 06:59 06:59 Intake Total 960 Balance 960 Result Diagrams: 02/05/19 05:22 02/05/19 05:22 Hospitalist ROS - Review of Systems ENT: denies: ear pain, ear discharge, nose pain, nose discharge, nose congestion , mouth pain, mouth swelling, throat pain, throat swelling, other Respiratory: denies: cough, dry, shortness of breath, hemoptysis, SOB with excertion, pleuritic pain, sputum, wheezing, other Cardiovascular: denies: chest pain, palpitations, orthopnea, paroxysmal noc. dyspnea, edema, light headedness, other Gastrointestinal: denies: nausea, vomiting, abdominal pain, diarrhea, constipation, melena, hematochezia, other Genitourinary: denies: dysuria, frequency, incontinence, hematuria, retention, other Musculoskeletal: denies: neck pain, shoulder pain, arm pain, back pain, hand pain, leg pain, foot pain, other Skin: denies: rash, lesions, charbel, bruising, other Neurological: reports: confusion. denies: weakness, numbness, incoordination, change in speech, seizures, other - Medication Medications: Active Medications Generic Name Dose Route Start Last Admin Trade Name Freq PRN Reason Stop Dose Admin Acetaminophen 650 mg 01/27/19 23:47 02/04/19 18:25 Tylenol PO 650 mg Q4H PRN Administration Headache/Fever/Mild Pain (1-3) Alprazolam 0.25 mg 01/28/19 00:34 01/30/19 17:55 Xanax PO 0.25 mg Q24H PRN Administration Anxiety Atenolol 50 mg 02/03/19 09:00 02/05/19 09:20 Tenormin PO Not Given DAILY FRANCOISE Carbidopa/Levodopa 1 tab 01/29/19 17:00 02/05/19 08:41 Sinemet Cr 50/200 PO 1 tab QID FRANCOISE Administration Cefuroxime Axetil 250 mg 02/03/19 21:00 02/05/19 08:40 Ceftin PO 250 mg Q12HR FRANCOISE Administration Cholecalciferol 2,000 units 02/03/19 09:00 02/05/19 08:40 Vitamin D3 PO 2,000 units DAILY FRANCOISE Administration Cyanocobalamin 1,000 mcg 02/03/19 09:00 02/05/19 08:40 Vitamin B-12 PO 1,000 mcg DAILY FRANCOISE Administration Doxazosin Mesylate 4 mg 02/02/19 21:00 02/04/19 21:17 Cardura PO 4 mg QPM FRANCOISE Administration Famotidine 20 mg 01/28/19 09:00 02/05/19 08:40 Pepcid PO 20 mg BID FRANCOISE Administration Fluoxetine HCl 40 mg 02/03/19 09:00 02/05/19 08:41 Prozac PO 40 mg DAILY FRANCOISE Administration Hydralazine HCl 5 mg 01/28/19 02:08 01/29/19 00:52 Apresoline SLOW IVP 5 mg Q6H PRN Administration Blood Pressure Hydralazine HCl 25 mg 01/28/19 15:00 02/05/19 09:21 Apresoline PO Not Given TID FRANCOISE Lisinopril 40 mg 02/02/19 21:00 02/04/19 21:16 Zestril PO 40 mg QPM FRANCOISE Administration Multivitamins 1 tab 02/02/19 21:00 02/05/19 08:41 Theragran PO 1 tab BID FRANCOISE Administration Pramipexole Dihydrochloride 0.25 mg 01/28/19 09:00 02/05/19 08:40 Mirapex PO 0.25 mg TID FRANCOISE Administration Rivastigmine 3 mg 02/02/19 17:00 02/05/19 08:40 Exelon PO 3 mg BID-WM FRANCOISE Administration Senna/Docusate Sodium 2 tab 01/27/19 23:47 02/05/19 08:40 Senokot S PO 2 tab BIDPRN PRN Administration Constipation Simvastatin 10 mg 02/02/19 21:00 02/04/19 21:14 Zocor PO 10 mg HS FRANCOISE Administration Trazodone HCl 50 mg 01/28/19 00:35 01/30/19 22:02 Desyrel PO 50 mg HS PRN Administration Insomnia Venlafaxine HCl 150 mg 02/02/19 21:00 02/04/19 21:17 Effexor Xr PO 150 mg QPM FRANCOISE Administration - Exam General Appearance: NAD, awake alert Eye: PERRL, anicteric sclera ENT: normocephalic atraumatic, no oropharyngeal lesions, dry oral mucosa Neck: supple, symmetric, no JVD Heart: RRR, no murmur, no gallops Respiratory: CTAB, no wheezes, no rales Gastrointestinal: soft, non-tender, non-distended, normal bowel sounds Extremities: no cyanosis, no clubbing Skin: normal turgor, no lesions Neurological: no focal deficits Musculoskeletal: normal tone, normal strength Psychiatric: normal affect, normal behavior Hosp A/P (1) Encephalopathy, metabolic Code(s): G93.41 - METABOLIC ENCEPHALOPATHY Status: Acute (2) HTN (hypertension) Code(s): I10 - ESSENTIAL (PRIMARY) HYPERTENSION Status: Acute Qualifiers: Hypertension type: essential hypertension Qualified Code(s): I10 - Essential (primary) hypertension (3) Obstructive uropathy Code(s): N13.9 - OBSTRUCTIVE AND REFLUX UROPATHY, UNSPECIFIED Status: Acute (4) Parkinson disease Code(s): G20 - PARKINSON'S DISEASE Status: Acute (5) Physical deconditioning Code(s): R53.81 - OTHER MALAISE Status: Acute (6) Secondary malignant neoplasm of unspecified site Code(s): C79.9 - SECONDARY MALIGNANT NEOPLASM OF UNSPECIFIED SITE; C80.1 - MALIGNANT (PRIMARY) NEOPLASM, UNSPECIFIED Status: Acute (7) UTI (urinary tract infection) Status: Acute Qualifiers: Urinary tract infection type: acute cystitis Hematuria presence: without hematuria Qualified Code(s): N30.00 - Acute cystitis without hematuria (8) DM type 2 (diabetes mellitus, type 2) Status: Chronic Qualifiers: Diabetes mellitus intermediate school teacher insulin use: without senior care use Diabetes mellitus complication status: without complication Qualified Code(s): E11.9 - Type 2 diabetes mellitus without complications - Plan old records reviewed/req, plan discussed w/ family, PT/OT, social sciences department chair 02/02/19 oncology has been consulted and opinion pending discharge planning medication reviewed supportive care prognosis guarded continue rocephin 02/03/19 DC rocephin change to ceftin await placement discussed with family medication reviewed and continue to provide supportive care 02/04/19 continue ceftin medication reviewed and continue to provide supportive care await placement discussed with daughter stool softener for constipation 02/05/19 continue current treatment plan needs placement provide supportive care and comfort care discussed with son bedside
[2019-02-05] MEDS: Ondansetron ODT 4 MG TAB PO PRN (17:50)
[2019-02-05] MEDS: Acetaminophen 325 MG TAB PO PRN (18:34)
[2019-02-06] MEDS: Pramipexole Di-HCl 0.25 MG TAB PO SCH ×3 (09:15→20:59)
[2019-02-06] MEDS: FLUoxetine HCl 20 MG CAP PO SCH (09:15)
[2019-02-06] MEDS: Carbidopa/Levodopa CR 50-200 mg Tablet PO SCH ×4 (09:15→20:59)
[2019-02-06] MEDS: Cefuroxime Axetil 250 MG TAB PO SCH ×2 (09:15→20:59)
[2019-02-06] MEDS: Atenolol 50 MG TAB PO SCH (09:15)
[2019-02-06] MEDS ORDERED: Bisacodyl 10 MG SUPP PR PRN (10:13)
--- NOTE | 2019-02-06 10:53 | PDOC.HOSPP ---
- Subjective Encounter Date: 02/06/19 Encounter Time: 10:00 Subjective: Patient seen and examined. No overnight events, pt is confused, has poor po intake - Objective Vital Signs & Weight: Vital Signs (12 hours) Temp Pulse Resp BP BP Pulse Ox 02/06/19 08:24 98.1 F 73 20 120/72 91 L 02/06/19 08:00 91 L 02/06/19 04:00 99.8 F H 73 20 116/62 93 L 02/06/19 00:01 97.4 F L 75 20 128/65 94 L Weight Admit Weight 167 lb Weight 167 lb 11.2 oz I&O: 02/05/19 02/06/19 02/07/19 06:59 06:59 06:59 Intake Total 960 960 Balance 960 960 Result Diagrams: 02/05/19 05:22 02/05/19 05:22 Hospitalist ROS - Review of Systems ROS unobtainable: due to mental status - Medication Medications: Active Medications Generic Name Dose Route Start Last Admin Trade Name Freq PRN Reason Stop Dose Admin Acetaminophen 650 mg 01/27/19 23:47 02/05/19 18:34 Tylenol PO 650 mg Q4H PRN Administration Headache/Fever/Mild Pain (1-3) Alprazolam 0.25 mg 01/28/19 00:34 01/30/19 17:55 Xanax PO 0.25 mg Q24H PRN Administration Anxiety Atenolol 50 mg 02/03/19 09:00 02/06/19 09:15 Tenormin PO 50 mg DAILY FRANCOISE Administration Carbidopa/Levodopa 1 tab 01/29/19 17:00 02/06/19 09:15 Sinemet Cr 50/200 PO 1 tab QID FRANCOISE Administration Cefuroxime Axetil 250 mg 02/03/19 21:00 02/06/19 09:15 Ceftin PO 250 mg Q12HR FRANCOISE Administration Fluoxetine HCl 40 mg 02/03/19 09:00 02/06/19 09:15 Prozac PO 40 mg DAILY FRANCOISE Administration Hydralazine HCl 5 mg 01/28/19 02:08 01/29/19 00:52 Apresoline SLOW IVP 5 mg Q6H PRN Administration Blood Pressure Ondansetron HCl 4 mg 02/02/19 13:46 02/05/19 17:50 Zofran Odt PO 4 mg Q6H PRN Administration Nausea/Vomiting Pramipexole Dihydrochloride 0.25 mg 01/28/19 09:00 02/06/19 09:15 Mirapex PO 0.25 mg TID FRANCOISE Administration Senna/Docusate Sodium 2 tab 01/27/19 23:47 02/05/19 08:40 Senokot S PO 2 tab BIDPRN PRN Administration Constipation Trazodone HCl 50 mg 01/28/19 00:35 01/30/19 22:02 Desyrel PO 50 mg HS PRN Administration Insomnia - Exam General Appearance: NAD, awake alert Eye: PERRL, anicteric sclera ENT: normocephalic atraumatic, no oropharyngeal lesions Neck: supple, symmetric, no JVD Heart: RRR, no murmur, no gallops, no rubs Respiratory: CTAB, no wheezes, no rales Gastrointestinal: soft, non-tender, non-distended, normal bowel sounds Extremities: no cyanosis, no clubbing, no edema Skin: normal turgor, no lesions Neurological: no focal deficits Musculoskeletal: normal tone, normal strength Psychiatric: normal affect, normal behavior, not oriented Hosp A/P (1) Encephalopathy, metabolic Code(s): G93.41 - METABOLIC ENCEPHALOPATHY Status: Acute (2) HTN (hypertension) Code(s): I10 - ESSENTIAL (PRIMARY) HYPERTENSION Status: Acute Qualifiers: Hypertension type: essential hypertension Qualified Code(s): I10 - Essential (primary) hypertension (3) Obstructive uropathy Code(s): N13.9 - OBSTRUCTIVE AND REFLUX UROPATHY, UNSPECIFIED Status: Acute (4) Parkinson disease Code(s): G20 - PARKINSON'S DISEASE Status: Acute (5) Physical deconditioning Code(s): R53.81 - OTHER MALAISE Status: Acute (6) Secondary malignant neoplasm of unspecified site Code(s): C79.9 - SECONDARY MALIGNANT NEOPLASM OF UNSPECIFIED SITE; C80.1 - MALIGNANT (PRIMARY) NEOPLASM, UNSPECIFIED Status: Acute (7) UTI (urinary tract infection) Status: Acute Qualifiers: Urinary tract infection type: acute cystitis Hematuria presence: without hematuria Qualified Code(s): N30.00 - Acute cystitis without hematuria (8) DM type 2 (diabetes mellitus, type 2) Status: Chronic Qualifiers: Diabetes mellitus ch[facility] insulin use: without meterman use Diabetes mellitus complication status: without complication Qualified Code(s): E11.9 - Type 2 diabetes mellitus without complications - Plan old records reviewed/req, plan discussed w/ family, continue antibiotics, PT/OT , 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/19 oncology has been consulted and opinion pending discharge planning medication reviewed supportive care prognosis guarded continue rocephin 02/03/19 DC rocephin change to ceftin await placement discussed with family medication reviewed and continue to provide supportive care 02/04/19 continue ceftin medication reviewed and continue to provide supportive care await placement discussed with daughter stool softener for constipation 02/05/19 continue current treatment plan needs placement provide supportive care and comfort care discussed with son bedside 02/06/19 medication reviewed as above and symptomatic treatment continue oral ceftim await placement high risk for readmission provide comfort care as per family we have dced many unnecessary medication from her medication list per family request
[2019-02-07] MEDS: ALPRAZolam 0.25 MG TAB PO PRN ×2 (03:22→20:41)
[2019-02-07] MEDS: Atenolol 50 MG TAB PO SCH (08:29)
[2019-02-07] MEDS: Cefuroxime Axetil 250 MG TAB PO SCH ×2 (08:30→20:41)
[2019-02-07] MEDS: Pramipexole Di-HCl 0.25 MG TAB PO SCH ×3 (08:30→20:41)
[2019-02-07] MEDS: FLUoxetine HCl 20 MG CAP PO SCH (08:30)
[2019-02-07] MEDS: Carbidopa/Levodopa CR 50-200 mg Tablet PO SCH ×4 (08:30→20:41)
--- NOTE | 2019-02-07 10:47 | PDOC.HOSPP ---
- Subjective Encounter Date: 02/07/19 Encounter Time: 09:20 Subjective: Patient seen and examined. pt is confused,. No overnight events - Objective Vital Signs & Weight: Vital Signs (12 hours) Temp Pulse Resp BP BP Pulse Ox 02/07/19 08:29 64 144/80 H 02/07/19 08:10 97.3 F L 64 16 144/80 H 93 L 02/07/19 08:00 93 L Weight Admit Weight 167 lb Weight 167 lb 11.2 oz I&O: 02/06/19 02/07/19 02/08/19 06:59 06:59 06:59 Intake Total 960 600 Balance 960 600 Result Diagrams: 02/05/19 05:22 02/05/19 05:22 Hospitalist ROS - Review of Systems ROS unobtainable: due to mental status - Medication Medications: Active Medications Generic Name Dose Route Start Last Admin Trade Name Freq PRN Reason Stop Dose Admin Acetaminophen 650 mg 01/27/19 23:47 02/05/19 18:34 Tylenol PO 650 mg Q4H PRN Administration Headache/Fever/Mild Pain (1-3) Alprazolam 0.25 mg 01/28/19 00:34 02/07/19 03:22 Xanax PO 0.25 mg Q24H PRN Administration Anxiety Atenolol 50 mg 02/03/19 09:00 02/07/19 08:29 Tenormin PO 50 mg DAILY FRANCOISE Administration Bisacodyl 10 mg 02/06/19 10:13 02/06/19 13:57 Dulcolax IA 10 mg DAILYPRN PRN Administration Constipation Carbidopa/Levodopa 1 tab 01/29/19 17:00 02/07/19 08:30 Sinemet Cr 50/200 PO 1 tab QID FRANCOISE Administration Cefuroxime Axetil 250 mg 02/03/19 21:00 02/07/19 08:30 Ceftin PO 250 mg Q12HR FRANCOISE Administration Fluoxetine HCl 40 mg 02/03/19 09:00 02/07/19 08:30 Prozac PO 40 mg DAILY FRANCOISE Administration Hydralazine HCl 5 mg 01/28/19 02:08 01/29/19 00:52 Apresoline SLOW IVP 5 mg Q6H PRN Administration Blood Pressure Ondansetron HCl 4 mg 02/02/19 13:46 02/05/19 17:50 Zofran Odt PO 4 mg Q6H PRN Administration Nausea/Vomiting Pramipexole Dihydrochloride 0.25 mg 01/28/19 09:00 02/07/19 08:30 Mirapex PO 0.25 mg TID FRANCOISE Administration Senna/Docusate Sodium 2 tab 01/27/19 23:47 02/05/19 08:40 Senokot S PO 2 tab BIDPRN PRN Administration Constipation Trazodone HCl 50 mg 01/28/19 00:35 01/30/19 22:02 Desyrel PO 50 mg HS PRN Administration Insomnia - Exam General Appearance: NAD, awake alert Eye: PERRL, anicteric sclera ENT: normocephalic atraumatic, no oropharyngeal lesions Neck: supple, symmetric, no JVD Heart: RRR, no murmur, no gallops Respiratory: CTAB, no wheezes, no rales Gastrointestinal: soft, non-tender, non-distended Extremities: no cyanosis, no clubbing Skin: normal turgor, no lesions Neurological: no focal deficits Musculoskeletal: normal tone, normal strength Psychiatric: normal affect, normal behavior, not oriented Hosp A/P (1) Encephalopathy, metabolic Code(s): G93.41 - METABOLIC ENCEPHALOPATHY Status: Acute (2) HTN (hypertension) Code(s): I10 - ESSENTIAL (PRIMARY) HYPERTENSION Status: Acute Qualifiers: Hypertension type: essential hypertension Qualified Code(s): I10 - Essential (primary) hypertension (3) Obstructive uropathy Code(s): N13.9 - OBSTRUCTIVE AND REFLUX UROPATHY, UNSPECIFIED Status: Acute (4) Parkinson disease Code(s): G20 - PARKINSON'S DISEASE Status: Acute (5) Physical deconditioning Code(s): R53.81 - OTHER MALAISE Status: Acute (6) Secondary malignant neoplasm of unspecified site Code(s): C79.9 - SECONDARY MALIGNANT NEOPLASM OF UNSPECIFIED SITE; C80.1 - MALIGNANT (PRIMARY) NEOPLASM, UNSPECIFIED Status: Acute (7) UTI (urinary tract infection) Status: Acute Qualifiers: Urinary tract infection type: acute cystitis Hematuria presence: without hematuria Qualified Code(s): N30.00 - Acute cystitis without hematuria (8) DM type 2 (diabetes mellitus, type 2) Status: Chronic Qualifiers: Diabetes mellitus nursing home insulin use: without terminal carman use Diabetes mellitus complication status: without complication Qualified Code(s): E11.9 - Type 2 diabetes mellitus without complications - Plan old records reviewed/req, plan discussed w/ family, continue antibiotics, PT/OT , 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 oncology has been consulted and opinion pending discharge planning medication reviewed supportive care prognosis guarded continue rocephin 02/03/19 DC rocephin change to ceftin await placement discussed with family medication reviewed and continue to provide supportive care 02/04/19 continue ceftin medication reviewed and continue to provide supportive care await placement discussed with daughter stool softener for constipation 02/05/19 continue current treatment plan needs placement provide supportive care and comfort care discussed with son bedside 02/06/19 medication reviewed as above and symptomatic treatment continue oral ceftim await placement high risk for readmission provide comfort care as per family we have dced many unnecessary medication from her medication list per family request 02/07/19 medication reviewed as above and continue to provide supportive care once we have snu arranged will dc discussed with family bedside
[2019-02-07] MEDS: Ondansetron ODT 4 MG TAB PO PRN (20:43)
[2019-02-07] MEDS ORDERED: traZODone HCl 50 MG TAB PO SCH (21:00)
[2019-02-08] MEDS: Pramipexole Di-HCl 0.25 MG TAB PO SCH (08:15)
[2019-02-08] MEDS: FLUoxetine HCl 20 MG CAP PO SCH (08:15)
[2019-02-08] MEDS: Carbidopa/Levodopa CR 50-200 mg Tablet PO SCH (08:16)
[2019-02-08] MEDS: Cefuroxime Axetil 250 MG TAB PO SCH (08:16)
[2019-02-08] MEDS: Atenolol 50 MG TAB PO SCH (08:16)
[2019-02-08] MEDS: Acetaminophen 325 MG TAB PO PRN (08:17)
--- NOTE | 2019-02-08 10:34 | DIS ---
DATE OF ADMISSION: 01/28/2019 DATE OF DISCHARGE: 02/08/2019 FINAL DIAGNOSES AT THE TIME OF DISCHARGE: 1. Metabolic encephalopathy, resolved. 2. Obstructive uropathy, status post stenting. 3. 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 4. Hypertension. 5. Parkinson disease. 6. Physical deconditioning. 7. Urinary tract infection. 8. Diabetes mellitus. CONSULTANTS: 1. Dr. Melchor, Urology Service. 2. Rosa Maria Mcgee, Oncology Service. 3. Ronna Pichardo, Palliative consultation. OPERATIONS: 1. By Dr. Melchor on January 28, cystoscopy with left ureteral stent placement, 6 x 24 double-J stent secondary to left ureteral stone. 2. Liver biopsy on January 30, 2019, by radiologist. Pathology report, metastatic poorly-differentiated adenocarcinoma. HOSPITAL COURSE: The patient is an 83-year-old female with past medical history of prediabetes, hypertension, and Parkinson disease, who presented to the hospital with altered mental status. This was going on for approximately 1 week prior to this hospitalization. The patient has not been drinking fluids. She was not eating much. She denied any fevers at the time of emergency room visit. Her white count was 12.2, hemoglobin was 13, hematocrit 40.6, platelet count 298,000. Normal electrolytes. Normal kidney function. 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 The patient was admitted to the hospital, started on IV fluids. Urology was consulted. Then, she was placed on antibiotic. The patient was seen by Dr. Melchor, who recommended stenting which was done the next day. Also, she was seen by Dr. Sosa for GI evaluation. The palliative care and the comfort measures were recommended. Apparently, her urinalysis was done outside of this hospital, and it showed positive nitrites and few bacteria, 20 to 50 wbc's, and moderate leukocytosis. The patient was continued on Rocephin. Echocardiogram showed diastolic dysfunction and normal systolic function. Also, she underwent liver biopsy which showed metastatic poorly-differentiated adenocarcinoma. The family decided not to do anything about this very advanced disease. [facility] since she is deconditioned, and most likely, she will stay there after that. DIET: At the time of discharge, we recommend her to stay on diabetic diet. ACTIVITIES: As tolerated. MEDICATIONS: 1. Ceftin 250 mg twice a day for 10 days. 2. Trazodone 50 mg at bedtime. 3. Senokot-S 2 tablets b.i.d. p.r.n. 4. Pramipexole 0.25 mg 3 times a day. 5. Zofran p.r.n. 6. Metformin 500 mg twice a day. 7. Tums p.r.n. 500 two tablets every 4 hours. 8. Artificial Tears p.r.n. 9. Alprazolam 0.25 mg daily p.r.n. 10. Tylenol 650 mg q.4 hours p.r.n. 11. She will continue her carbidopa/levodopa 50/200 mg 1 tablet 4 times a day. 12. Prozac 40 mg once a day. 13. Atenolol 50 mg daily. FOLLOWUP: The family is going to call Dr. Melchor's office and make followup appointment with him, and we recommend her to have followup appointment with her primary care physician in 1 week. Job ID: [id number]
[2019-02-08 11:10] VITALS: BP 166/71; TEMP 98
== END 2019-02-08 11:54 | DRG 659 ==
LOC: ERS 23:06 → T4-B 01-28 01:27
PROVIDERS: ADMIT Internal Medicine; ATTEND Internal Medicine
PROC: 0T778DZ Dilation of Left Ureter with Intraluminal Device, Via Natural or Artificial Opening Endoscopic (ICD-10-PCS; principal; 2019-01-28)
PROC: 0FB23ZX Excision of Left Lobe Liver, Percutaneous Approach, Diagnostic (ICD-10-PCS; 2019-01-30)
DX: N13.6 Pyonephrosis (principal); G93.41 Metabolic encephalopathy; C78.7 Secondary malignant neoplasm of liver and intrahepatic bile duct; C78.00 Secondary malignant neoplasm of unspecified lung; C78.6 Secondary malignant neoplasm of retroperitoneum and peritoneum; Z66 Do not resuscitate; Z51.5 Encounter for palliative care; I10 Essential (primary) hypertension; G20 Parkinson's disease; E78.5 Hyperlipidemia, unspecified; F32.9 Major depressive disorder, single episode, unspecified; Z96.659 Presence of unspecified artificial knee joint; Z90.49 Acquired absence of other specified parts of digestive tract; Z88.8 Allergy status to other drugs, medicaments and biological substances; Z79.84 Long term (current) use of oral hypoglycemic drugs; E83.52 Hypercalcemia; E86.0 Dehydration; C26.9 Malignant neoplasm of ill-defined sites within the digestive system; R53.81 Other malaise; F01.50 Vascular dementia, unspecified severity, without behavioral disturbance, psychotic disturbance, mood disturbance, and anxiety
CPT/HCPCS: 36415; 36416; 47000; 76000; 77012; 80048; 80053; 80069; 82378; 85025; 85610; 86301; 88307; 88333; 88334; 88341; 88342; 93306; 96361; 96374; C1769; J0360; J0696; J1100; J2001; J2060; J2250; J2405; J2704; J3010; J3490; Q0162